=== PATIENT | male | born 1955 | race Caucasian/White ===

== ENCOUNTER 2017-08-19 19:04 | Inpatient (IN) | payer MEDICARE, OTHER ==
[2017-08-19 20:01] LABS: Bilirubin Negative (Negative); Blood, Urine Trace (Negative); Clarity CLEAR (Clear); Glucose, Urine (Dipstick) Negative (Negative); Leukocyte Negative (Negative); Nitrite Negative (Negative); Protein, Urine (Dipstick) Negative (Neg-Trace); Specific Gravity, Urine 1.004 (1.002-1.036); Urobilinogen 0.2 mg/dL (0.2-1.0)
[2017-08-19 20:10] LABS: RBC/HPF None Seen HPF (0-3); WBC/HPF None Seen HPF (0-3)
[2017-08-19 20:11] LABS: Bacteria/HPF None Seen HPF (None Seen); Hyaline Casts/LPF NONE SEEN LPF (0-3 Hyaline); Squamous Epithelial None Seen HPF (0-3)
[2017-08-19 20:24] LABS: #Basophils 0.1 thou/uL (0.0-0.2); #Lymphocytes 1.5 thou/uL (1.20-3.40); #Neutrophils 8.1 thou/uL (1.40-6.50); %Basophils 0.5 % (0.0-1.0); %Eosinophils 0.3 % (0.0-10.0); %Lymphocytes 14.3 % (21.0-51.0); %Monocytes 9.3 % (0.0-10.0); %Neutrophils 75.7 % (42.0-75.0); Hemoglobin 17.9 g/dL (14.0-18.0); Mean Corpuscular HGB CONC 34.6 g/dL (32.0-36.0); Mean Corpuscular Hemoglobin 37.4 pg (27.0-31.0); Mean Platelet Volume 7.8 fL (7.4-10.4); Platelet Count 165 thou/uL (130-400); RBC Distribution Width 15.4 % (11.5-14.5); Red Blood Cell (RBC) Count 4.79 mill/uL (4.70-6.10); White Blood Cell (WBC) Count 10.6 thou/uL (4.8-10.8)
[2017-08-19 20:45] LABS: Troponin I Less than 0.010 ng/mL (< 0.028)
[2017-08-19] MEDS ORDERED: Multivitamins, Adult 10 ML, Thiamine HCl 100 MG, Folic Acid 1 MG in Dextrose 5 %-0.45 %... IV ONE (20:45)
[2017-08-19 20:50] LABS: CKMB 9.4 ng/mL (0-6.6)
[2017-08-19 20:55] LABS: PTT 26.7 SEC (22.9-36.1); Prothrombin Time 12.8 SEC (12.0-14.7)
[2017-08-19 21:01] LABS: ALT (SGPT) 21 U/L (8-55); AST (SGOT) 69 U/L (5-34); Alkaline Phosphatase 78 U/L (40-150); Anion Gap 18 mmol/L (10-20); BUN (Urea Nitrogen) 6 mg/dL (8.4-25.7); Bilirubin, Total 0.9 mg/dL (0.2-1.2); CK (CPK) 1328 U/L (30-200); Calc. Creatinine Clearance 0 mL/min (70-130); Calcium 9.6 mg/dL (7.8-10.44); Carbon Dioxide 22 mmol/L (23-31); Chloride 96 mmol/L (98-107); Estimated GFR-MDRD Greater than 90; Globulin 4.2 g/dL (2.4-3.5); Glucose 103 mg/dL (80-115); Potassium 4.7 mmol/L (3.5-5.1); Protein, Total 8.2 g/dL (5.8-8.1); Sodium 131 mmol/L (136-145)
[2017-08-19] MEDS ORDERED: chlordiazePOXIDE HCl 25 MG CAP ONE (22:05)
--- NOTE | 2017-08-19 22:14 | CT ---
CT BRAIN NONCONTRAST: HISTORY: A 62-year-old female, status post acute head trauma from fall. FINDINGS: There is no midline shift or any other mass effect. There is no evidence of acute intracranial hemor rhage, large cortical infarct, obstructive hydrocephalus, or extraaxial fluid collection. The calvar ium is intact. IMPRESSION: No acute intracranial findings. jn [] POS: [facility]
--- NOTE | 2017-08-19 22:18 | CT ---
CT CERVICAL SPINE NONCONTRAST: DATE: 08/19/2017 TIME: 9:28 p.m. HISTORY: A 62-year-old male status post acute cervical trauma from a fall. FINDINGS: There are no jumped or perched facets. There is no evidence of acute fracture. The vertebral body h eights are maintained. There is no prevertebral soft tissue swelling. There are degenerative disc c hanges and facet osteoarthrosis. There is a left pleural effusion that reaches the left apex IMPRESSION: 1) Cervical spondylosis. 2) No evidence of acute fracture or acute traumatic subluxation. 3) Left pleural effusion that reaches the apex, incompletely visualized. CODE CR jn [] POS: [facility]
--- NOTE | 2017-08-19 22:20 | RAD ---
RADIOGRAPH RIGHT KNEE FOUR VIEWS: HISTORY: A 62-year-old male with traumatic right knee pain due to multiple falls. FINDINGS: No fracture or dislocation. Joint spaces are maintained. Small marginal osteophytes at the patellof emoral and the medial compartments. Chondrocalcinosis in the medial and lateral compartments. No la rge joint effusion. IMPRESSION: 1. No acute fracture. 2. Mild osteoarthrosis. 3. Chondrocalcinosis, consistent with calcium pyrophosphate deposition disease. POS: [facility]
--- NOTE | 2017-08-19 22:23 | RAD ---
FRONTAL RADIOGRAPH PELVIS: 08/19/2017 HISTORY: Fall. Pain. FINDINGS: The patient is rotated to the right, which limits a detailed assessment of the osseous structures. T he femoral heads project normally over their respective acetabulum, with no displaced fracture seen. There is no widening sacroiliac joints or the pubic symphysis. IMPRESSION: Limited study secondary to rotation the right. No displaced fracture or dislocation seen. POS: [facility]
--- NOTE | 2017-08-19 22:31 | RAD ---
LEFT KNEE FOUR VIEWS: 08/19/2017 HISTORY: Fall. Pain. FINDINGS: There is a total knee arthroplasty present. There is no evidence for hardware failure. No displaced fracture or dislocation. No significant knee joint effusion. IMPRESSION: No displaced fracture or dislocation is noted. POS: [facility]
--- NOTE | 2017-08-19 22:40 | RAD ---
RADIOGRAPH CHEST 1 VIEW: Date: 08/19/2017 Time: 8:58 p.m. HISTORY: A 62-year-old male with acute chest pain, status post fall. Dr. Tafoya discussed the pneumothorax, by cherry aguilar, with Dr. Church, at 9:44 pm 08/19/2017. COMPARISON: 11/07/2006 FINDINGS: There is a moderate to large left pneumothorax, which was not present on the 2007 radiograph. Again noted is partial visualization of a prosthetic metallic right humeral head. There is partial collaps e of the left lung. The right lung is relatively clear. No cardiomegaly. Ectasia and tortuosity of the thoracic aorta without other widening of the mediastinum. There is silhouetting of the left hem idiaphragm, presumably due to left basilar atelectasis, although a small or moderate sized left pleur al effusion is difficult to exclude. No right-sided pneumothorax identified. IMPRESSION: 1. Moderate to large sized left pneumothorax, of indeterminate age. 2. Associated atelectasis of the left lung, especially at the left base. 3. Uncertain whether or not there is a left pleural effusion. CODE CR JN [] POS: [facility]
[2017-08-19] MEDS ORDERED: Ondansetron ODT 4 MG TAB ONE (22:59)
--- NOTE | 2017-08-19 23:40 | CT ---
CT THORAX NONCONTRAST: DATE: 08/19/2017 TIME: 10:48 p.m. HISTORY: A 62-year-old male with left pneumothorax. COMPARISON: No prior chest CTs. FINDINGS: There is a left sided loculated pneumothorax that occupies the lateral aspect of the left hemithoraci c cavity, extending from the upper to the lower levels. It occupies approximately 30% volume of the left hemithorax. It has thick lovell, circumferentially. There is associated stranding, consistent w ith scarring, of the pulmonary parenchyma, abutting this pneumothorax. There is mass-like thickening of pulmonary scar tissue at the posterior-inferior aspect of the left lung, contiguous with this pne umothorax. There is associated architectural distortion of the left lung, throughout the upper, mid, and lower lung zones. There is no shift of midline of the trachea. The right lung is essentially c lear. No right-sided pneumothorax or right pleural effusion. No thoracic aortic aneurysm or dissect ion. No mediastinal lymphadenopathy, cardiomegaly, or pericardial effusion. A metallic prosthesis r eplacing the right humeral head, with a long stem that reaches the humeral mid-diaphysis. No grossly displaced acute rib fracture identified. IMPRESSION: Moderate sized loculated, chronic-appearing left pneumothorax with adjacent left pleural thickening, and associated chronic pulmonary scarring and architectural distortion of the left lung. ZORAIDA Tamez POS: [facility]
[2017-08-20 00:07] LABS: Lactic Acid 1.6 mmol/L (0.5-2.2)
[2017-08-20 01:06] LABS: Acetaminophen Less than 6.0 mcg/mL (10.0-30.0); Alcohol Less than 10 mg/dL (Less than 10); Salicylate Less than 8.0 mg/dL (15.0-30.0)
--- NOTE | 2017-08-20 02:06 | PDOC.FPRHP ---
- History of Present Illness Chief Complaint: fall, couldn't walk, trouble walking History of Present Illness: 62 yo M w/o known PMH hasn't been to the physician in a very long time presents to ED after being brought in by friends. Pt reports he fell and was unable to walk and get to help today, but was eventually able to get to a phone and call friends. Pt reports he has had progressive numbness of his lower extremities and increasing fall frequency over the last several months. He has not sought the care of a physician in this time. He also reports persistent and worsening joint pain. Denies recent illnesses, fever, chills, cp, sob, NVDC. He is a current everyday smokeless tobacco user, he smokes marijuana daily and has approx 6-8 12 oz beers a day. Denied bowel or bladder incontinence. Pt reports he was down for approx 3 hours, was later able to make it to the bathroom and then fell again and was unable to get back up. He reports no recollection of falling wpisodes and doesnt really "come to" until just before hitting the ground. ED Course: Banana bag, librium and zofran - Allergies/Adverse Reactions Allergies Allergy/AdvReac Type Severity Reaction Status Date / Time Sulfa (Sulfonamide Allergy Verified 08/20/17 04:47 Antibiotics) - Home Medications Medication Instructions Recorded Confirmed Type No Known [No Known] 08/20/17 08/20/17 History - History PMHx: No Known PSHx: Numerous joint surgeries including, rt knee meniscus, left acl, left total knee, r shoulder replacement, FHx: NA Social: Current everyday smokeless tobacco user 1/2 can a day for 25 years, 6-8 12 oz beers per day, current everyday marijuana user - Review of Systems General: denies: fever/chills, weight/appetite/sleep changes, night sweats Eyes: denies: eye pain, vision changes ENT: denies: nasal congestion, rhinorrhea Respiratory: denies: cough, congestion, shortness of breath, exercise intolerance Cardiovascular: denies: chest pain, palpitation, edema, paroxysmal nocturnal dyspnea Gastrointestinal: denies: nausea, vomiting, diarrhea, constipation, abdominal pain, GI bleeding Genitourinary: denies: incontinence, dysuria Skin: reports: other (numerous abrasions). denies: rashes, lesions Musculoskeletal: reports: pain, tenderness, swelling, arthritis/arthralgias Neurological: reports: numbness, syncope, weakness - Vital signs BP: 156/101 HR: 87 RR: 19 Tmax: 98.2 Pox: 99% on 4LNC Wt: 63.5Kg - Physical Exam Constitutional: NAD, awake, alert and oriented HEENT: normocephalic and atraumatic, PERRLA, EOMI, grossly normal vision, grossly normal hearing, other (poor dentition, polyp on uvula, rt parotid swelling) Neck: supple, FROM, trachea midline, no LAD, no JVD, no thyromegaly Chest: no-tender to palpation Heart: RRR, normal S1/S2, no murmurs/rubs/gallops, pulses present, no edema Lungs: CTAB, no respiratory distress, good air movement, no rales/rhonchi, no wheezing, no retractions, other (absent breath sounds SHAHLA) Abdomen: soft, non-tender, bowel sounds present, no masses/distention Musculoskeletal: normal structure, normal tone Neurological: no focal deficit, CN II-XII intact, other (diminished sensation b/ l LE, diminished sensation Lt hand compared to right) Skin: other (abrasions scattered over b/l LE and thorax) Heme/Lymphatic: no petechia, no LAD, other (abrasions and superficial lacerations b/l LE and scattered around thorax) Psychiatric: normal mood and affect FMR H&P: Results - Labs Result Diagrams: 08/20/17 04:51 08/20/17 04:51 Lab results: WBC 10.6 thou/uL (4.8-10.8) 08/19/17 20:09 Hgb 17.9 g/dL (14.0-18.0) 08/19/17 20:09 Hct 51.8 % (42.0-52.0) 08/19/17 20:09 MCV 108.0 fL (78.0-98.0) H 08/19/17 20:09 Plt Count 165 thou/uL (130-400) 08/19/17 20:09 Neutrophils % 75.7 % (42.0-75.0) H 08/19/17 20:09 Sodium 131 mmol/L (136-145) L 08/19/17 20:09 Potassium 4.7 mmol/L (3.5-5.1) 08/19/17 20:09 Chloride 96 mmol/L (98-107) L 08/19/17 20:09 Carbon Dioxide 22 mmol/L (23-31) L 08/19/17 20:09 BUN 6 mg/dL (8.4-25.7) L 08/19/17 20:09 Creatinine 0.70 mg/dL (0.6-1.3) 08/19/17 20:09 Glucose 103 mg/dL (80-115) 08/19/17 20:09 Lactic Acid 1.6 mmol/L (0.5-2.2) 08/19/17 23:42 Calcium 9.6 mg/dL (7.8-10.44) 08/19/17 20:09 Total Bilirubin 0.9 mg/dL (0.2-1.2) 08/19/17 20:09 AST 69 U/L (5-34) H 08/19/17 20:09 ALT 21 U/L (8-55) 08/19/17 20:09 Alkaline Phosphatase 78 U/L (40-150) 08/19/17 20:09 Creatine Kinase 1328 U/L (30-200) H 08/19/17 20:09 CK-MB (CK-2) 9.4 ng/mL (0-6.6) H* 08/19/17 20:09 Serum Total Protein 8.2 g/dL (5.8-8.1) H 08/19/17 20:09 Albumin 4.0 g/dL (3.4-4.8) 08/19/17 20:09 Urine Ketones Trace mg/dL (Negative) H 08/19/17 19:43 Urine Blood Trace (Negative) H 08/19/17 19:43 Urine Nitrite Negative (Negative) 08/19/17 19:43 Ur Leukocyte Esterase Negative (Negative) 08/19/17 19:43 Urine RBC None Seen HPF (0-3) 08/19/17 19:43 Urine WBC None Seen HPF (0-3) 08/19/17 19:43 Ur Squamous Epith Cells None Seen HPF (0-3) 08/19/17 19:43 Urine Bacteria None Seen HPF (None Seen) 08/19/17 19:43 FMR H&P: A/P - Problem List (1) TIA (transient ischemic attack) Current Visit: Yes Status: Suspected (2) Fall Current Visit: Yes Status: Acute Code(s): W19.XXXA - UNSPECIFIED FALL, INITIAL ENCOUNTER (3) Alcohol abuse Current Visit: Yes Status: Chronic Code(s): F10.10 - ALCOHOL ABUSE, UNCOMPLICATED (4) Macrocytosis Current Visit: Yes Status: Acute Code(s): D75.89 - OTHER SPECIFIED DISEASES OF BLOOD AND BLOOD-FORMING ORGANS (5) Neuropathy Current Visit: Yes Status: Suspected Code(s): G62.9 - POLYNEUROPATHY, UNSPECIFIED (6) Alcohol dependence Current Visit: Yes Status: Chronic Code(s): F10.20 - ALCOHOL DEPENDENCE, UNCOMPLICATED (7) Marijuana abuse Current Visit: Yes Status: Chronic Code(s): F12.10 - CANNABIS ABUSE, UNCOMPLICATED (8) Dehydration Current Visit: Yes Status: Acute Code(s): E86.0 - DEHYDRATION - Plan 1a. TIA vs CVA-admit, stroke, CT brain neg, obtain CTA head and neck and MRI, echo also ordered. This could be related to vitamin deficiency, obtain B12 and RBC folate. Risk stratify with FLP, Mg, Phos, TSH, A1c 1b. Pneumothorax vs bleb-Dr. Ward consulted from ED and reviewed imaging, will decide on chest tube in AM, non-acute pneumo, continue O2 prn was on 4L downstairs satting 99% 1c. Fall-imaging obtained unremarkable, c/o ankle pain, add film order for that 1d. Dehydration-CK elevated, will hydrate with low rate to avoid rapid over correction of hyponatremia 1e. Beer drinkers potomania-correct slowly, appears volume down 2. Alcohol dependence-states he is not interested in quitting, drank 1 beer before coming in, will order beer and ASE protocol, avoid benzos as he is not wanting to quit 3. Cannabis abuse-advised to quit Full code Disposition/LOS: fair, >/= 2 days FMR H&P: Upper Level - Pertinent history Pt is a 62 yo M w/PMH of cannabis abuse and alcohol dependence who presents to the ED w/3 hr hx of falling and no being able to get up, trouble walking. He reports that he fell around 2300 in his living room, was not able to get up and walk, called his friends to come get him and take him to the hospital, got up and crawled in the bathroom, then after that was not able to walk and crawled to his room. He states that this was the worst spell, but that he has been falling for about 5 mo, his legs have scrapes and bruises all over them. Reports that he has not seen a doctor since his knee surgery, he drinks 6-8 beers daily, smokes cannabis daily since age 19, does not use tobacco. General: appears disheveled, thin, malodorous HEENT: orpharynx mildly red, dry mm, Card: RRR Lungs: no breath sounds SHAHLA Abdomen: soft, non TTP, normoactive bs Extremities: covered in excoriations Neuro: CN II-XII intact, 5/5 UE LE strength, 4/5 lead generation specialist strength, reports no sensation in feet, and more proximally A/P: 1a. TIA vs CVA-admit, stroke, CT brain neg, obtain CTA head and neck and MRI, echo also ordered. This could be related to vitamin deficiency, obtain B12 and RBC folate. Risk stratify with FLP, Mg, Phos, TSH, A1c 1b. Pneumothorax vs bleb-Dr. Ward consulted from ED and reviewed imaging, will decide on chest tube in AM, non-acute pneumo, continue O2 prn was on 4L downstairs satting 99% 1c. Fall-imaging obtained unremarkable, c/o ankle pain, add film order for that 1d. Dehydration-CK elevated, will hydrate with low rate to avoid rapid over correction of hyponatremia 1e. Beer drinkers potomania-correct slowly, appears volume down 2. Alcohol dependence-states he is not interested in quitting, drank 1 beer before coming in, will order beer and ASE protocol, avoid benzos as he is not wanting to quit 3. Cannabis abuse-advised to quit Full code - Plan Date/Time: 08/20/17 7103 I, Holley Chicas, have evaluated this patient and agree with findings/plan as outlined by media intern resident, Dr. Medrano. Pertinent changes/additions are listed here. Attending Addendum - Attending Addendum Date/Time: 08/20/17 4776 I personally evaluated the patient and discussed the management with Dr. Medrano/ Jaime I agree with the History, Examination, Assessment and Plan documented above with any addition or exceptions noted below. Patient with progressive symptoms of peripheral neuropathy last few months with significant history for alcoholism. Work up in progress for central etiologies patient with recent falls currently not endorsing any current desire for alcohol /substance abuse cessation. Patient MCV elevated most likely nutrition related, B12 pending. Expectant management withdrawal protocol.
[2017-08-20] MEDS ORDERED: Sodium Chloride 0.45% 1,000 ML IV SCH (03:15)
[2017-08-20] MEDS ORDERED: Ondansetron ODT 4 MG TAB PO PRN (04:13)
[2017-08-20] MEDS ORDERED: Ondansetron HCl/PF 4 MG/2 ML Vial IVP PRN (04:13)
[2017-08-20] MEDS ORDERED: hydrALAZINE 20 MG/ML VIAL SLOW IVP PRN (04:13)
[2017-08-20 04:38] VITALS: BMI 20.7
[2017-08-20 05:38] LABS: Magnesium 1.9 mg/dL (1.6-2.6); Phosphorus 2.6 mg/dL (2.3-4.7)
--- NOTE | 2017-08-20 06:23 | PDOC.FM ---
- Subjective Subjective: Miladis Mccabe seen at bedside this morning. He states that he still feels nauseous but he is otherwise fine, just wants to sleep. He denies any acute events since being admitted overnight. Has no other complaints. Denies fever, chills, chest pain, dyspnea, lightheadedness, dizziness, pre-syncope. - Objective MAR Reviewed: Yes Vital Signs & Weight: Vital Signs (12 hours) Temp Pulse Resp BP Pulse Ox 08/20/17 03:00 98.2 F 86 18 160/96 H 96 Weight Weight 67.676 kg I&O: 08/18/17 08/19/17 08/20/17 06:59 06:59 06:59 Intake Total 270 Balance 270 Result Diagrams: 08/20/17 04:51 08/20/17 04:51 <Tom Sandoval - Last Filed: 08/20/17 08:41> - Objective Vital Signs & Weight: Vital Signs (12 hours) Temp Pulse Resp BP Pulse Ox 08/20/17 08:00 98.4 F 86 18 143/82 H 96 08/20/17 03:00 98.2 F 86 18 160/96 H 96 Weight Admit Weight 67.676 kg Weight 67.676 kg I&O: 08/19/17 08/20/17 08/21/17 06:59 06:59 06:59 Intake Total 270 Balance 270 Result Diagrams: 08/20/17 04:51 08/20/17 04:51 <Tobias Amado - Last Filed: 08/20/17 11:26> Phys Exam - Physical Examination Constitutional: NAD HEENT: moist MMs, sclera anicteric Neck: no JVD, supple, full ROM Respiratory: no wheezing, no rales, no rhonchi, clear to auscultation bilateral Cardiovascular: RRR, no significant murmur Gastrointestinal: soft, non-tender, no distention Musculoskeletal: no edema, pulses present Neurological: non-focal, normal sensation, moves all 4 limbs Psychiatric: normal affect, A&O x 3 Skin: no rash, normal turgor <Tom Sandoval - Last Filed: 08/20/17 08:41> Dx/Plan (1) TIA (transient ischemic attack) Status: Suspected (2) Alcohol dependence Code(s): F10.20 - ALCOHOL DEPENDENCE, UNCOMPLICATED Status: Chronic (3) Marijuana abuse Code(s): F12.10 - CANNABIS ABUSE, UNCOMPLICATED Status: Chronic - Plan Plan: 1) TIA vs CVA vs Wernicke Encephalopathy or other vit def - CT brain neg, obtain CTA head and neck and MRI, echo also ordered. - This could be related to vitamin deficiency, obtain B12 and RBC folate - Check RPR, HIV, and Hepatitis Panel this morning - Continue IV thiamine for 3 days - Fall-imaging obtained unremarkable, c/o ankle pain, add film order for that - Dehydration-CK elevated, will hydrate with low rate to avoid rapid over correction of hyponatremia - Beer drinkers potomania-correct slowly, appears volume down 2. Alcohol dependence - states he is not interested in quitting, drank 1 beer before coming in - ASE protocol, avoid benzos as he is not wanting to quit 3. Cannabis abuse - advised to quit 4) Pneumothorax: - Pneumothorax vs bleb-Dr. Ward consulted from ED and reviewed imaging, will decide on chest tube in AM, non-acute pneumo, continue O2 prn was on 4L downstairs satting 99% <Tom Sandoval - Last Filed: 08/20/17 08:41> (1) TIA (transient ischemic attack) Status: Suspected (2) Fall Code(s): W19.XXXA - UNSPECIFIED FALL, INITIAL ENCOUNTER Status: Acute (3) Alcohol abuse Code(s): F10.10 - ALCOHOL ABUSE, UNCOMPLICATED Status: Chronic (4) Macrocytosis Code(s): D75.89 - OTHER SPECIFIED DISEASES OF BLOOD AND BLOOD-FORMING ORGANS Status: Acute (5) Neuropathy Code(s): G62.9 - POLYNEUROPATHY, UNSPECIFIED Status: Suspected (6) Alcohol dependence Code(s): F10.20 - ALCOHOL DEPENDENCE, UNCOMPLICATED Status: Chronic (7) Marijuana abuse Code(s): F12.10 - CANNABIS ABUSE, UNCOMPLICATED Status: Chronic (8) Dehydration Code(s): E86.0 - DEHYDRATION Status: Acute <Tobias Amado - Last Filed: 08/20/17 11:26> Attending Addendum - Attending Addendum Date/Time: 08/20/17 1126 I personally evaluated the patient and discussed the management with Dr. Sandoval I agree with the History, Examination, Assessment and Plan documented above with any addition or exceptions noted below. <Tobias Amado - Last Filed: 08/20/17 11:26>
[2017-08-20 06:28] LABS: Amphetamine Not Detected (NotDetected); Barbiturates Screen Not Detected (NotDetected); Benzodiazepine Screen Not Detected (NotDetected); Cocaine Metabolite Screen Not Detected (NotDetected); Medtox Control Line Valid? VALID (VALID); Medtox Reader # READER 4; Methadone Not Detected (NotDetected); Methamphetamine Not Detected (NotDetected); Opiate Screen Not Detected (NotDetected); Oxycodone Screen Not Detected (NotDetected); Phencyclidine (PCP) Not Detected (NotDetected); THC/Cannabinoid Screen Detected (NotDetected); Tricyclic Screen Not Detected (NotDetected)
[2017-08-20] MEDS: Acetaminophen 325 MG TAB PO PRN (06:56)
[2017-08-20] MEDS: Sodium Chloride 0.9% 1,000 ML IV SCH ×2 (06:56→16:30)
[2017-08-20 07:05] LABS: #Lymphocytes 1.1 thou/uL (1.20-3.40); #Neutrophils 7.8 thou/uL (1.40-6.50); %Basophils 0.5 % (0.0-1.0); %Eosinophils 0.4 % (0.0-10.0); %Lymphocytes 11.4 % (21.0-51.0); %Monocytes 9.6 % (0.0-10.0); %Neutrophils 78.1 % (42.0-75.0); Hemoglobin 16.5 g/dL (14.0-18.0); Mean Corpuscular HGB CONC 33.6 g/dL (32.0-36.0); Mean Corpuscular Hemoglobin 36.5 pg (27.0-31.0); Mean Platelet Volume 8.5 fL (7.4-10.4); Platelet Count 153 thou/uL (130-400); RBC Distribution Width 15.4 % (11.5-14.5); Red Blood Cell (RBC) Count 4.51 mill/uL (4.70-6.10); White Blood Cell (WBC) Count 9.9 thou/uL (4.8-10.8)
--- NOTE | 2017-08-20 07:11 | CON ---
DATE OF CONSULTATION: HISTORY OF PRESENT ILLNESS: Mr. Mccabe presented to the emergency department last night being estephania t in by friends. He evidently fell and was unable to walk. As part of his workup, he had a chest x- ray obtained. This showed air space on the left. The patient has a known history of COPD. He has h ad a chest x-ray and chest CT performed. This shows what appears to be either a large bleb or chroni c airspace with a walled off area around it. The patient has remained asymptomatic from a pulmonary standpoint. Repeat chest x-ray is due this morning. The patient has been maintained on nasal cannul a oxygen overnight with no symptoms whatsoever from a pulmonary standpoint. PAST MEDICAL HISTORY: None. PAST SURGICAL HISTORY: Bilateral total knee replacements, right shoulder replacement, right knee men iscus surgery. SOCIAL HISTORY: He smokes marijuana, cigarettes and uses smokeless tobacco. He drinks approximately a 12 pack of beer a day. REVIEW OF SYSTEMS: Negative except as above. PHYSICAL EXAMINATION: VITAL SIGNS: Temperature is 98.2, pulse is 86 and regular, blood pressure 160/96. LUNGS: Clear bilaterally. HEART: Rhythm is regular. ABDOMEN: Soft and nontender. ASSESSMENT AND PLAN: Mr. Mccabe is a 62-year-old gentleman who either has a pneumothorax or a large bleb that is walled off. He is asymptomatic. I am uncomfortable saying this is a pneumothorax and p utting a chest tube in it right now. I would like to see what his chest x-ray looks like this mornin g. If it is stable or improved I would say we should treat him conservatively and not drain this.
[2017-08-20 07:23] LABS: ALT (SGPT) 17 U/L (8-55); AST (SGOT) 42 U/L (5-34); Albumin 3.2 g/dL (3.4-4.8); Alkaline Phosphatase 61 U/L (40-150); Anion Gap 10 mmol/L (10-20); BUN (Urea Nitrogen) 5 mg/dL (8.4-25.7); Bilirubin, Total 1.1 mg/dL (0.2-1.2); Calc. Creatinine Clearance 113 mL/min (70-130); Calcium 8.5 mg/dL (7.8-10.44); Carbon Dioxide 28 mmol/L (23-31); Chloride 99 mmol/L (98-107); Estimated GFR-MDRD Greater than 90; Globulin 2.7 g/dL (2.4-3.5); Glucose 123 mg/dL (80-115); Potassium 3.5 mmol/L (3.5-5.1); Protein, Total 5.9 g/dL (5.8-8.1); Sodium 133 mmol/L (136-145)
[2017-08-20 08:14] LABS: HBCM Index 0.07 S/CO (0-0.79); HBSAg Index 0.21 S/CO (0-0.99); HIV (1/2) Antibody/Antigen Non-Reactive (NonReactive); HIV 1/2 INDEX 0.14 S/CO (<1.00); Hep A IgM AB Non-Reactive (NonReactive); Hep A IgM S/CO 0.09 S/CO (0-0.79); Hep B Surf Ag Non-Reactive S/CO (NonReactive); Hep C IgG Ab Non-Reactive (NonReactive); Hepatitis B Core IGM Abs Non-Reactive (NonReactive)
[2017-08-20] MEDS ORDERED: Budesonide 0.25 MG/2 ML NEB ONE (08:39)
--- NOTE | 2017-08-20 09:16 | RAD ---
THREE VIEWS RIGHT ANKLE: Date: 08-20-17 Comparison: None. History: Ankle pain, fall. FINDINGS: There is soft tissue swelling seen lateral to the lateral malleolus. There is no displaced fracture o r evidence of dislocation seen. There is soft tissue swelling seen anteriorly. Vascular calcification s are noted. IMPRESSION: Soft tissue swelling with no displaced fracture or dislocation seen. POS: [facility]
--- NOTE | 2017-08-20 09:24 | RAD ---
CHEST 1 VIEW: Date: 08/20/17 HISTORY: 62-year-old male with history of TIA. COMPARISON: 08/19/17. FINDINGS: Persistent but decreasing loculated pleural air along the left lateral chest with some associated ple ural thickening and pleural fluid, as well as underlying bullous emphysema changes and patchy parench ymal changes in the left lung with some left apical pleural thickening. The right lung is clear. IMPRESSION: Decrease in loculated pleural air in the left lateral chest with associated pleural thickening and pr obable small pleural effusion, as well as underlying bullous emphysema changes and scattered chronic left lung changes. Stable right chest. No significant new process. Atherosclerosis of aorta. POS: [facility]
[2017-08-20] MEDS: Famotidine 20 MG TAB PO SCH ×2 (09:50→21:25)
[2017-08-20] MEDS: Aspirin 81 mg Enteric Coated Tablet PO SCH (09:50)
[2017-08-20] MEDS: Enoxaparin Sodium 40 MG/0.4 ML SYRINGE SC SCH (09:51)
[2017-08-20] MEDS: Folic Acid/Vit B Comp W-C PO SCH (09:59)
--- NOTE | 2017-08-20 10:38 | CT ---
CT ANGIOGRAM OF THE HEAD CT ANGIOGRAM OF THE NECK: Date: 08/20/17 COMPARISON: None. HISTORY: Recent fall, syncope, TIA vs. CVA, and paresthesias. TECHNIQUE: Serial axial CT imaging is obtained at 5 mm intervals from the vertex through the skull base without contrast. Then, serial axial CT imaging obtained at 1.25 mm intervals from lung apices through vertex with IV contrast using a CT angiogram protocol. Coronal and sagittal 3D reformatted imaging obtained . FINDINGS: The noncontrast enhanced head CT demonstrates bilateral maxillary sinus mucosal thickening, right gre ater than left. There is no intracranial hemorrhage, midline shift, mass effect, or ventricular enlar gement. Punctate hypodensity in the right cerebellar hemisphere on image 8 suggests an area of age-indetermin ate, likely old, ischemia. The imaged right lung apex is unremarkable. Partially visualized left lung demonstrates a lateral loc ulated pneumothorax and coarse increased linear and lobulated soft tissue density within the lateral aspect of the left upper lobe, nonspecific. Please refer to CT examination of the chest performed for full evaluation. There is no hemodynamically significant stenosis at the origin of the innominate artery, left subclav nabila artery, or left common carotid artery. There is no hemodynamically significant stenosis involving the origin of the right subclavian artery or right common carotid artery. There is no hemodynamically significant stenosis at the origin of either vertebral artery. Bilateral vertebral arteries are patent. The right vertebral artery is dominant. On the basis of NASCET criteria, there is no hemodynamically significant stenosis involving either co mmon or internal carotid artery. The trachea, cricoid cartilage, thyroid cartilage, hyoid bone, level of the glottis, tonsillar pillar s, epiglottis, and preepiglottic fat appear unremarkable. The parotid and submandibular glands appear grossly unremarkable. No lymphadenopathy is noted within the chest. CT angiogram of the head demonstrates patency of the basilar artery and its branches with no hemodyna mically significant stenosis, vascular occlusion, or saccular aneurysm involving the posterior circul ation. The M1 segment and MCA bifurcation appears unremarkable bilaterally. Bilateral A1 segments, the anter ior communicating artery, and bilateral distal intracerebral artery branches are unremarkable. No saccular aneurysm, high grade stenosis, or vascular occlusion is seen involving the anterior circu lation. Review of the osseous structures demonstrates degenerative change of the atlantoaxial interspace. The re is mild anterolisthesis at C3-4. At C7-T1, there is anterolisthesis measuring 4.0 mm. There is mul tilevel disc space narrowing and degenerative end plate change with bilateral facet and uncovertebral osteophyte formation throughout the cervical spine. No worrisome lytic or blastic bone lesions are s een. IMPRESSION: 1. Arterial structures demonstrate no hemodynamically significant stenosis or evidence of occlusion. 2. Abnormal appearance of the imaged left hemithorax, which is better assessed on the 08/19/[address] POS: [facility]
[2017-08-20] MEDS ORDERED: Iopamidol 370 76% 100 ML VIAL ONE (13:02)
[2017-08-20] MEDS: BEER 1 CAN PO SCH ×2 (14:15→16:54)
[2017-08-20 17:15] LABS: Syphilis Antibody Nonreactive (Nonreactive); Syphilis Antibody Index 0.07 S/CO (<1.00 Non-Reactive)
[2017-08-21] MEDS: BEER 1 CAN PO PRN ×2 (00:14→20:40)
[2017-08-21] MEDS: Sodium Chloride 0.9% 1,000 ML IV SCH ×3 (04:40→20:35)
[2017-08-21 05:55] LABS: Hemoglobin A1c 4.6 % (4.0-6.0)
[2017-08-21 06:01] LABS: #Basophils 0.1 thou/uL (0.0-0.2); #Eosinphils 0.1 thou/uL (0.0-0.7); #Lymphocytes 1.6 thou/uL (1.20-3.40); #Monocytes 0.8 thou/uL (0.11-0.59); #Neutrophils 5.4 thou/uL (1.40-6.50); %Basophils 0.7 % (0.0-1.0); %Eosinophils 0.9 % (0.0-10.0); %Lymphocytes 19.7 % (21.0-51.0); %Monocytes 10.6 % (0.0-10.0); Hemoglobin 14.1 g/dL (14.0-18.0); Mean Corpuscular HGB CONC 32.2 g/dL (32.0-36.0); Mean Corpuscular Hemoglobin 35.3 pg (27.0-31.0); Mean Platelet Volume 8.6 fL (7.4-10.4); Platelet Count 145 thou/uL (130-400); RBC Distribution Width 14.8 % (11.5-14.5); White Blood Cell (WBC) Count 7.9 thou/uL (4.8-10.8)
[2017-08-21 06:02] LABS: ALT (SGPT) 15 U/L (8-55); AST (SGOT) 34 U/L (5-34); Albumin 3.1 g/dL (3.4-4.8); Alkaline Phosphatase 55 U/L (40-150); Anion Gap 9 mmol/L (10-20); BUN (Urea Nitrogen) 4 mg/dL (8.4-25.7); Bilirubin, Total 0.8 mg/dL (0.2-1.2); Calc. Creatinine Clearance 132 mL/min (70-130); Calcium 8.7 mg/dL (7.8-10.44); Carbon Dioxide 26 mmol/L (23-31); Cardiac Risk 1.7 (Less than 4.5); Chloride 101 mmol/L (98-107); Cholesterol 102 mg/dl (< 200 Desired); Estimated GFR-MDRD Greater than 90; Globulin 2.8 g/dL (2.4-3.5); Glucose 84 mg/dL (80-115); HDL Cholesterol 59 mg/dL (>60 Neg Risk); LDL Cholesterol, Calculated 32 mg/dL; Potassium 3.3 mmol/L (3.5-5.1); Protein, Total 5.9 g/dL (5.8-8.1); Sodium 133 mmol/L (136-145); Triglycerides 55 mg/dL (Less than 150)
--- NOTE | 2017-08-21 06:11 | PDOC.FM ---
- Subjective Subjective: Miladis Mccabe seen at bedside this morning. He is doing well and has no complaints. There was no acute events overnight. He states that he is still having the b/l UE and LE numbness and weakness. He denies any fever, chest pain , dyspnea, n/v. - Objective MAR Reviewed: Yes Vital Signs & Weight: Vital Signs (12 hours) Temp Pulse Resp BP BP Pulse Ox 08/21/17 04:05 136/72 08/21/17 04:00 99.0 F 86 18 136/72 98 08/21/17 00:00 98.1 F 75 18 148/91 H 148/91 H 98 08/20/17 20:21 98.1 F 75 18 96 08/20/17 20:00 98.7 F 90 18 159/102 H 159/102 H 96 Weight Admit Weight 67.676 kg Weight 69.581 kg I&O: 08/19/17 08/20/17 08/21/17 06:59 06:59 06:59 Intake Total 270 1195 Output Total 1850 Balance 270 -655 Result Diagrams: 08/21/17 04:48 08/21/17 04:48 <Tom Sandoval - Last Filed: 08/21/17 08:12> - Objective Vital Signs & Weight: Vital Signs (12 hours) Temp Pulse Resp BP BP Pulse Ox 08/21/17 07:57 98.5 F 77 18 127/74 98 08/21/17 04:05 136/72 08/21/17 04:00 99.0 F 86 18 136/72 98 08/21/17 00:00 98.1 F 75 18 148/91 H 148/91 H 98 Weight Admit Weight 67.676 kg Weight 69.581 kg I&O: 08/20/17 08/21/17 08/22/17 06:59 06:59 06:59 Intake Total 270 1195 Output Total 1850 Balance 270 -655 Result Diagrams: 08/21/17 04:48 08/21/17 04:48 <Tobias Amado - Last Filed: 08/21/17 11:17> Phys Exam - Physical Examination Constitutional: NAD HEENT: moist MMs, sclera anicteric Neck: no JVD, supple, full ROM Respiratory: no wheezing, no rales, no rhonchi, clear to auscultation bilateral Cardiovascular: RRR, no significant murmur Gastrointestinal: soft, non-tender, no distention Musculoskeletal: no edema, pulses present Neurological: normal sensation, moves all 4 limbs Psychiatric: normal affect, A&O x 3 <Tom Sandoval - Last Filed: 08/21/17 08:12> Dx/Plan (1) Polyneuropathy Code(s): G62.9 - POLYNEUROPATHY, UNSPECIFIED Status: Acute (2) TIA (transient ischemic attack) Status: Ruled-out (3) Alcohol dependence Code(s): F10.20 - ALCOHOL DEPENDENCE, UNCOMPLICATED Status: Chronic (4) Marijuana abuse Code(s): F12.10 - CANNABIS ABUSE, UNCOMPLICATED Status: Chronic - Plan Plan: 1) Polyneuropathy - CT brain neg, CTA head and neck unremarkable, echo shows EF of 50-55% - B12 is borderline low, checking methylmalonic acid, RBC folate pending. - RPR, HIV, and Hepatitis Panel all negative - Continue IV thiamine for 3 days - Fall-imaging obtained unremarkable, c/o ankle pain, add film order for that - Dehydration-CK elevated, will hydrate with low rate to avoid rapid over correction of hyponatremia - Beer drinkers potomania-correct slowly, appears volume down - Supplementing both thiamine, B12, and Folate at this time 2) Hyponatremia - Likely 2/2 beer drinkers potomania - IVFs, slow correction - Na is now up to 133 this morning 3) Alcohol dependence - states he is not interested in quitting, drank 1 beer before coming in - ASE protocol, avoid benzos as he is not wanting to quit - Beer ordered with meals 4) Cannabis abuse - advised to quit 4) Pneumothorax: - Pneumothorax vs bleb-Dr. Ward consulted from ED and reviewed imaging, decided against chest tube as this appears chronic <Tom Sandoval - Last Filed: 08/21/17 08:12> (1) TIA (transient ischemic attack) Status: Ruled-out (2) Fall Code(s): W19.XXXA - UNSPECIFIED FALL, INITIAL ENCOUNTER Status: Acute (3) Alcohol abuse Code(s): F10.10 - ALCOHOL ABUSE, UNCOMPLICATED Status: Chronic (4) Macrocytosis Code(s): D75.89 - OTHER SPECIFIED DISEASES OF BLOOD AND BLOOD-FORMING ORGANS Status: Acute (5) Neuropathy Code(s): G62.9 - POLYNEUROPATHY, UNSPECIFIED Status: Suspected (6) Alcohol dependence Code(s): F10.20 - ALCOHOL DEPENDENCE, UNCOMPLICATED Status: Chronic (7) Marijuana abuse Code(s): F12.10 - CANNABIS ABUSE, UNCOMPLICATED Status: Chronic (8) Dehydration Code(s): E86.0 - DEHYDRATION Status: Acute <Tobias Amado - Last Filed: 08/21/17 11:17> Attending Addendum - Attending Addendum Date/Time: 08/21/17 1111 I personally evaluated the patient and discussed the management with Dr. Sandoval I agree with the History, Examination, Assessment and Plan documented above with any addition or exceptions noted below. patients sodium correcting profound stocking glove neuropathy with diminished reflexes noted. Proprioception diminished to LE concern to fall risk start Pt for reconditioning hopefully B12 vitamin supplementation will improves symptoms. Alcohol abuse likely large contributing factor as well to neuropathy. Pneumothorax is stable longstanding. <Tobias Amado - Last Filed: 08/21/17 11:17>
[2017-08-21] MEDS: BEER 1 CAN PO SCH ×4 (09:05→21:20)
[2017-08-21] MEDS: Folic Acid/Vit B Comp W-C PO SCH (09:08)
[2017-08-21] MEDS: Aspirin 81 mg Enteric Coated Tablet PO SCH (09:08)
[2017-08-21] MEDS: Enoxaparin Sodium 40 MG/0.4 ML SYRINGE SC SCH (09:08)
[2017-08-21] MEDS: Famotidine 20 MG TAB PO SCH ×2 (09:08→20:33)
[2017-08-21] MEDS ORDERED: Cyanocobalamin (Vitamin B-12) 1,000 MCG TAB PO SCH ×2 (11:30→11:45)
[2017-08-21 14:27] LABS: Hematocrit 43.6 % (37.5-51.0); RBC Folate Test Component 913 ng/mL (>498)
--- NOTE | 2017-08-21 14:56 | PQF ---
CLINICAL DOCUMENTATION IMPROVEMENT CLARIFICATION FORM: ICD-10 Updated PLEASE DO AN ADDENDUM TO THE PROGRESS NOTE WITH ANY DOCUMENTATION UPDATES OR ADDITIONS AND CARRY THROUGH TO DC SUMMARY. THANK YOU. DATE: 08/21/17 ATTN: Dr. Sandoval/ Attending Dr. Amado Please exercise your independent, professional judgment in responding to the clarification form. Clinical indicators are provided on the bottom of this form for your review Please check appropriate box(s): I (concur) with the Wound Care findings as stated below. [ x ] Pressure Ulcer: (Stage I: Erythema; Stage II: Partial thickness; Stage III : Full thickness; Stage IV: Necrosis to muscle/bone) [ x ] Location: __left gluteal fold Stage (I to IV ): ___II____ (Left__x___ Right N/a____) [ x ] Location: ___L buttock/coccyx Stage (I to IV) : __II (Left__x___ Right N/A____) [ x ] Location: right foot Stage (I to IV): ___ II____ (Left Right_x___ N/A____) [ ] Location: Stage (I to IV): (Left__ ___ Right____ N/A____) [ ] Location: Stage (I to IV): (Left__ ___ Right N/A____) [ ] Location: Stage (I to IV): (Left__ ___ Right N/A____) [ ] Location: Stage (I to IV): (Left__ ___ Right N/A____) [ ] Location: Stage (I to IV): (Left__ ___ Right N/A____) [ ] No pressure ulcer diagnosis [ ] Deep tissue injury [ ] Other diagnosis [ ] Unable to determine In addition, please specify: Present on Admission (POA): [ x ] Yes [ ] No [ ] Unable to determine For continuity of documentation, please document condition throughout progress notes and discharge summary. Thank You. CLINICAL INDICATORS - SIGNS / SYMPTOMS / LABS WOUND CARE ASSESSMENT 08/20: RIGHT FOOT, LATERAL ASPECT PRESSURE ULCER. STAGE II R ANKLE LATERAL ASPECT PRESSURE ULCER. UNSTAGABLE R LEG, SUPERIOR LATERAL ASPECT PRESSURE ULCER. UNSTAGABLE R KNEE LATERAL ASPECT PRESSURE ULCER. UNSTAGABLE R ELBOW PRESSURE ULCER. UNSTAGABLE LEFT GLUTEAL FOLD PRESSURE ULCER. STAGE II L BUTTOCK/COCCYX PRESSURE ULCER. STAGE II RISKS: H&P 08/20: PRESENTS TO ED W/ 3 HR HX OF FALLING & NO BEING ABLE TO GET UP, TROUBLE WALKING. DEHYDRATION - CK ELEVATED. ALCOHOL DEPENDENCE. PROGRESSIVE SYMPTOMS OF PERIPHERAL NEUROPATHY LAST FEW MONTHS. TREATMENT: ORDER 08/20: WOUNDCARE EVAL/TREAT FOR WOUNDS UNSTAGABLE/NECROTIC ULCERS BLE & SACRUM (This form is maintained as a part of the permanent medical record) 2014 [employer]. All Rights Reserved Magalie Albrecht RN, BSN [email or web address] Office: [phone] [facility]ITAL[facility]
[2017-08-21] MEDS: Acetaminophen 325 MG TAB PO PRN (17:35)
[2017-08-21] MEDS ORDERED: BEER 1 CAN PO SCH (23:30)
[2017-08-22] MEDS: Sodium Chloride 0.9% 1,000 ML IV SCH ×2 (05:15→17:49)
[2017-08-22] MEDS: Acetaminophen 325 MG TAB PO PRN (05:18)
[2017-08-22 05:29] LABS: #Basophils 0.1 thou/uL (0.0-0.2); #Eosinphils 0.1 thou/uL (0.0-0.7); #Lymphocytes 1.5 thou/uL (1.20-3.40); #Monocytes 0.8 thou/uL (0.11-0.59); #Neutrophils 4.7 thou/uL (1.40-6.50); %Basophils 0.7 % (0.0-1.0); %Eosinophils 1.9 % (0.0-10.0); %Lymphocytes 21.2 % (21.0-51.0); %Monocytes 10.7 % (0.0-10.0); %Neutrophils 65.4 % (42.0-75.0); Hemoglobin 14.5 g/dL (14.0-18.0); Mean Corpuscular HGB CONC 33.8 g/dL (32.0-36.0); Mean Corpuscular Hemoglobin 36.6 pg (27.0-31.0); Mean Platelet Volume 8.1 fL (7.4-10.4); Platelet Count 172 thou/uL (130-400); RBC Distribution Width 14.6 % (11.5-14.5); Red Blood Cell (RBC) Count 3.97 mill/uL (4.70-6.10); White Blood Cell (WBC) Count 7.2 thou/uL (4.8-10.8)
[2017-08-22 05:42] LABS: ALT (SGPT) 16 U/L (8-55); AST (SGOT) 34 U/L (5-34); Albumin 3.2 g/dL (3.4-4.8); Alkaline Phosphatase 59 U/L (40-150); Anion Gap 9 mmol/L (10-20); BUN (Urea Nitrogen) 5 mg/dL (8.4-25.7); Bilirubin, Total 0.5 mg/dL (0.2-1.2); Calc. Creatinine Clearance 130 mL/min (70-130); Calcium 8.4 mg/dL (7.8-10.44); Carbon Dioxide 26 mmol/L (23-31); Chloride 102 mmol/L (98-107); Estimated GFR-MDRD Greater than 90; Glucose 88 mg/dL (80-115); Potassium 3.4 mmol/L (3.5-5.1); Protein, Total 6.2 g/dL (5.8-8.1); Sodium 134 mmol/L (136-145)
--- NOTE | 2017-08-22 06:23 | PDOC.FM ---
- Subjective Subjective: Miladis Mccabe seen at bedside this morning. There were no acute events overnight. He complains over tooth pain while eating this morning because he has a loose tooth. He also complains of his joints hurting. Otherwise he has no complaints. Denies any fever, chills, chest pain, dyspnea. - Objective MAR Reviewed: Yes Vital Signs & Weight: Vital Signs (12 hours) Temp Pulse Resp BP Pulse Ox 08/22/17 04:46 98.2 F 71 18 141/79 H 96 08/21/17 23:57 98 F 85 20 176/93 H 99 08/21/17 20:46 98.3 F 106 H 20 153/98 H 96 08/21/17 20:15 98 F 85 20 96 Weight Admit Weight 67.676 kg Weight 69.4 kg I&O: 08/20/17 08/21/17 08/22/17 06:59 06:59 06:59 Intake Total 270 1195 Output Total 1850 Balance 270 -655 Result Diagrams: 08/22/17 04:32 08/22/17 04:32 <Tom Sandoval - Last Filed: 08/22/17 08:44> - Objective Vital Signs & Weight: Vital Signs (12 hours) Temp Pulse Resp BP Pulse Ox 08/22/17 08:00 97.9 F 72 20 124/75 93 L 08/22/17 04:46 98.2 F 71 18 141/79 H 96 08/21/17 23:57 98 F 85 20 176/93 H 99 Weight Admit Weight 67.676 kg Weight 69.4 kg I&O: 08/21/17 08/22/17 08/23/17 06:59 06:59 06:59 Intake Total 1195 1687 Output Total 1850 425 Balance -655 1262 Result Diagrams: 08/22/17 04:32 08/22/17 04:32 <Tobias Amado - Last Filed: 08/22/17 11:53> Phys Exam - Physical Examination Constitutional: NAD HEENT: moist MMs, sclera anicteric poor dentition, loose right molar, no edema, exudades, erythema Neck: supple, full ROM Respiratory: no wheezing, no rales, no rhonchi, clear to auscultation bilateral Cardiovascular: RRR, no significant murmur Gastrointestinal: soft, non-tender, no distention Musculoskeletal: no edema, pulses present Neurological: non-focal decreased sensation in UE and LE B/l Psychiatric: normal affect, A&O x 3 Deviation from normal: several scratching and healing wounds on b/l legs <Tom Sandoval - Last Filed: 08/22/17 08:44> Dx/Plan (1) Polyneuropathy Code(s): G62.9 - POLYNEUROPATHY, UNSPECIFIED Status: Acute (2) TIA (transient ischemic attack) Status: Ruled-out (3) Alcohol dependence Code(s): F10.20 - ALCOHOL DEPENDENCE, UNCOMPLICATED Status: Chronic (4) Marijuana abuse Code(s): F12.10 - CANNABIS ABUSE, UNCOMPLICATED Status: Chronic - Plan Plan: 1) Polyneuropathy - CT brain neg, CTA head and neck unremarkable, echo shows EF of 50-55% - B12 is borderline low, checking methylmalonic acid, RBC folate pending. - RPR, HIV, and Hepatitis Panel all negative - Continue IV thiamine for 3 days - Fall-imaging obtained unremarkable, c/o ankle pain, add film order for that - Beer drinkers potomania-correct slowly, appears volume down - Supplementing both thiamine, B12, and Folate at this time - Likely B12 deficiency causing polyneuropathy - Likely d/c today, possibly placement in SNF or swing bed - CM consulted, appreciate recs 2) Hyponatremia - Likely 2/2 beer drinkers potomania - IVFs, slow correction - Na is now up to 134 this morning 3) Alcohol dependence - states he is not interested in quitting, drank 1 beer before coming in - ASE protocol, avoid benzos as he is not wanting to quit - Beer ordered with meals 4) Cannabis abuse - advised to quit 4) Pneumothorax: - Pneumothorax vs bleb-Dr. Ward consulted from ED and reviewed imaging, decided against chest tube as this appears chronic <Tom Sandoval - Last Filed: 08/22/17 08:44> (1) TIA (transient ischemic attack) Status: Ruled-out (2) Fall Code(s): W19.XXXA - UNSPECIFIED FALL, INITIAL ENCOUNTER Status: Acute (3) Alcohol abuse Code(s): F10.10 - ALCOHOL ABUSE, UNCOMPLICATED Status: Chronic (4) Macrocytosis Code(s): D75.89 - OTHER SPECIFIED DISEASES OF BLOOD AND BLOOD-FORMING ORGANS Status: Acute (5) Neuropathy Code(s): G62.9 - POLYNEUROPATHY, UNSPECIFIED Status: Suspected (6) Alcohol dependence Code(s): F10.20 - ALCOHOL DEPENDENCE, UNCOMPLICATED Status: Chronic (7) Marijuana abuse Code(s): F12.10 - CANNABIS ABUSE, UNCOMPLICATED Status: Chronic (8) Dehydration Code(s): E86.0 - DEHYDRATION Status: Acute <Tobias Amado - Last Filed: 08/22/17 11:53> Attending Addendum - Attending Addendum Date/Time: 08/22/17 1150 I personally evaluated the patient and discussed the management with Dr. Sandoval I agree with the History, Examination, Assessment and Plan documented above with any addition or exceptions noted below.Patient stable for dismissal to rehab placement. Moderate peripheral neuropathy RX gabapentin and Physical Therapy , B12 supplementation and encourage alcohol cessation patient states he will cut down on drinking. Patient counseled poor prognosis with continued alcohol usuage but declining intervention at this time. <Tobias Amado - Last Filed: 08/22/17 11:53>
[2017-08-22] MEDS ORDERED: Cyanocobalamin (Vitamin B-12) 1,000 MCG TAB PO SCH (09:00)
[2017-08-22] MEDS ORDERED: Gabapentin 300 MG CAP PO SCH (09:00)
[2017-08-22] MEDS: Folic Acid/Vit B Comp W-C PO SCH (09:22)
[2017-08-22] MEDS: Aspirin 81 mg Enteric Coated Tablet PO SCH (09:22)
[2017-08-22] MEDS: Enoxaparin Sodium 40 MG/0.4 ML SYRINGE SC SCH (09:22)
[2017-08-22] MEDS: Famotidine 20 MG TAB PO SCH (09:22)
[2017-08-22] MEDS: Gabapentin 100 MG CAP PO SCH ×2 (09:22→14:16)
[2017-08-22] MEDS: BEER 1 CAN PO SCH ×3 (09:42→17:49)
[2017-08-22] MEDS ORDERED: Potassium Chloride 20 MEQ TAB PO SCH (12:00)
--- NOTE | 2017-08-22 14:12 | DIS-2 ---
DATE OF DISCHARGE: 08/22/2017 RESIDENT: Tom Sandoval M.D. ADMITTING ATTENDING: Dr. Tobias Amado DISCHARGE ATTENDING: Dr. Tobias Amado. CONSULTATIONS: Cardiovascular, Dr. Ward on 08/20/2017. PROCEDURES: 1. Brain CT on 08/19/2017: Impression: No acute intracranial findings. 2. CT of the cervical spine on 08/19/2017: Impression: Cervical spondylosis, no evidence of acute fr acture or acute traumatic subluxation, left pleural effusion that reaches the apex incompletely visua lized. 3. Chest CT on 08/19/2017: Impression: Moderate-sized loculated chronic appearing left pneumothora x with adjacent left pleural thickening and associated chronic pulmonary scarring and architectural d istortion of the left lung. 4. Knee x-ray on 08/19/2017: Impression: No acute fractures. Mild osteoarthrosis, chondrocalcinos is. 5. Chest x-ray on 08/19/2017: Impression: Moderate to large sized left pneumothorax, associated at electasis of the left lung, especially at the left base. 6. Knee x-ray on 08/19/2017 of the left knee: Impression: No displaced fracture or dislocation is noted. 7. X-ray of the pelvis on 08/19/2017: Impression: Limited study secondary to rotation to the right . No displaced fracture or dislocation seen. 8. CT angiogram of the head and neck with and without contrast. Impression: Arterial structures de monstrate no hemodynamically significant stenosis or evidence of occlusion. 9. Ankle x-ray on 08/20/2017: Impression: Soft tissue swelling with no displaced fracture or dislo cation seen of the right ankle. 10. Chest x-ray on 08/20/2017: Impression: Decrease in loculated pleural air in the left lateral c hest with associated pleural thickening and probable small pleural effusion as well as underlying bul lous emphysema changes and scattered chronic left lung changes, stable right chest. No significant n ew process. 11. Echocardiogram on 08/20/2017: In summary, left ventricular size is normal, ejection fraction vi sually estimated at 50-55%. Inferior wall mildly hypokinetic, left atrium of normal size, mild to mo derate aortic regurgitation is noted. PRIMARY DIAGNOSES: 1. Alcohol dependence. 2. Vitamin B12 deficiency. SECONDARY DIAGNOSES: 1. Marijuana abuse. 2. Polyneuropathy. 3. Macrocytosis. 4. Alcohol dependence. 5. History of multiple falls. DISCHARGE MEDICATIONS: NEW HOME MEDICATIONS: 1. Tylenol 650 mg p.o. q.6h. p.r.n. 2. Aspirin 81 mg p.o. daily. 3. Vitamin B12 1000 mcg p.o. daily for 7 days. 4. Pepcid 20 mg p.o. b.i.d. 5. Nephro-Ember (folic acid/vitamin B complex) 1 tablet p.o. daily. 6. Gabapentin 100 mg p.o. t.i.d. 7. Thiamine 100 mg p.o. daily. HISTORY OF PRESENT ILLNESS/HOSPITAL COURSE: Miladis Mccabe is a 62-year-old male without known past me dical history as he has not been to a physician in a very long time, presented to the ED after being brought in by friends. The patient reports that he fell and was unable to walk and to get help today . Eventually, he was able to get to a phone call his friends. He reports that he has had progressiv e numbness of his lower extremities and increasing frequency and falls over the last several months. He has not sought care by a physician at any time. He reports persistent worsening joint pain. Den ies recent illness, fevers, chills, chest pain, shortness of breath, nausea, vomiting, diarrhea, cons tipation. He is a current everyday smokeless tobacco user and smokes marijuana daily. He drinks evelio roximately 6-8 12 ounce beers a day. Denies bowel or bladder incontinence. The patient stated he wa s down for approximately 3 hours and was able to make it to the bathroom where he fell again and was completely unable to get it back up. He reports no recollection of no syncopal episodes. In the ED, he received a banana bag, Librium and Zofran. His initial vitals were 156/101, heart rate of 80, te mperature of 98.2, respiratory rate 19, pulse ox 99% on 4 liters. Initial labs; white blood cell count 9.9, hemoglobin 16.5, hematocrit 49.1, platelets 153. Sodium 13 3, potassium 3.5, chloride 99, bicarbonate 28, BUN 5, creatinine 0.65, and glucose of 123. CK was 13 28, he had an MCV of 108. There was concern early in the ED for TIA versus CVA. The patient was admitted to the stroke unit. Brain CT was negative. CT angiogram of the head and neck was negative. Echocardiogram was normal. It was likely that his symptoms were attributed to the polyneuropathy. All his frequency and falls h as been attributed to the polyneuropathy likely secondary to chronic significant alcohol use and siobhan min B12 deficiency. The patient was supplemented during his hospital admission with vitamin B12, thi amine and folic acid. Labs were drawn that showed a RBC folate that was normal and a B12 that was 23 8, which is at the low end of normal. Methylmalonic acid is pending. The patient was started on wayne apentin for polyneuropathy pain. The patient expressed no interest in cessation of alcohol. Electro lytes were corrected during his hospital admission and the patient was accepted to [facility] on 08/22/2017. The patient was cleared for discharge at this time with instructions to go to the [facility] and get physical therapy. The patient was also instructed to establish care w ith a primary care provider for routine health maintenance and to continue taking his vitamins. We a lso strongly encouraged the patient to decrease alcohol intake if not quit drinking completely. The patient expressed understanding. DISPOSITION: The patient has a significant polyneuropathy secondary to likely alcohol abuse and siobhan min B12 deficiency. It is unknown whether or not patient will regain all of his normal sensation and strength, but if he continues to take his prescribed medications that will give him his best chance of recovery. DISCHARGE INSTRUCTIONS: 1. Location: [facility]. 2. Diet: Heart healthy. 3. Activity: As tolerated. 4. Followup: [facility]
[2017-08-22 15:53] VITALS: BP 174/104; TEMP 98
[2017-08-24 12:10] LABS: Methylmalonic Acid 214 nmol/L (0-378)
== END 2017-08-22 19:04 | disposition swing bed (61) | DRG 74 ==
LOC: ERS 19:04 → 2SE 08-20 00:57 → ERS 08-20 02:42
PROVIDERS: ADMIT Emergency Medicine; ATTEND Emergency Medicine
DX: G62.1 Alcoholic polyneuropathy (principal); E87.1 Hypo-osmolality and hyponatremia; J93.9 Pneumothorax, unspecified; F10.20 Alcohol dependence, uncomplicated; Y90.9 Presence of alcohol in blood, level not specified; F12.10 Cannabis abuse, uncomplicated; E86.0 Dehydration; W19.XXXA Unspecified fall, initial encounter; Z91.81 History of falling; F17.210 Nicotine dependence, cigarettes, uncomplicated; D75.89 Other specified diseases of blood and blood-forming organs; E53.8 Deficiency of other specified B group vitamins; J44.9 Chronic obstructive pulmonary disease, unspecified; L89.322 Pressure ulcer of left buttock, stage 2; L89.612 Pressure ulcer of right heel, stage 2
CPT/HCPCS: 36415; 70450; 70496; 70498; 71045; 71250; 72125; 72170; 80053; 80061; 80074; 80306; 80307; 81003; 81015; 82553; 82607; 82747; 83036; 83090; 83605; 83735; 83921; 84100; 84439; 84443; 84484; 85014; 85025; 85610; 85730; 86480; 86780; 87040; 87077; 87086; 87149; 87186; 87389; 90471; 90732; 93306; 96365; 96366; A4216; G0009; G8978-GP-CL; G8979-GP-CI; J1650; J3411; J7042; J7050; J7626; Q0162

== ENCOUNTER 2017-11-25 13:01 | Outpatient (CLI) | payer MEDICARE ==
--- NOTE | 2017-11-25 16:15 | MRI ---
MRI LUMBAR SPINE WITHOUT CONTRAST: INDICATIONS: Low back pain with left-sided sciatica. TECHNIQUE: Multiplanar, multisequence MR images were obtained of the lumbar spine. FINDINGS: The conus was seen to terminate at approximately L1. Bone marrow signal intensity is within normal l imits. There is small, 5 mm cyst involving the inferior pole of the left kidney. There is a bony hemangioma within T11. 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 At L5-S1, there is mild facet joint degenerative change but no appreciable central canal or neural fo raminal narrowing. At L4-L5, there is a broad-based bulge with ligamentum flavum hypertrophy, facet degenerative change, and epidural lipomatosis causing moderate to severe central canal narrowing. There is moderate to s evere bilateral neural foraminal narrowing. At L3-L4, there is a broad-based bulge with facet hypertrophy and epidural lipomatosis inducing moder ate central canal narrowing with moderate bilateral neural foraminal narrowing. At L2-L3, there is a broad-based bulge with facet hypertrophy and prominence of the epidural fat jimena cing mild central canal narrowing and moderate right and mild left neural foraminal narrowing. At L1-L2, there is a broad-based bulge with facet hypertrophy inducing moderate bilateral neural fora uvaldo narrowing. At T12-L1, there is an asymmetric to the right, broad-based bulge inducing mild to moderate right karlene ral foraminal narrowing. IMPRESSION: 1. Partial sacralization at L5. 2. Multilevel central canal and neural foraminal narrowing. POS: [facility]
== END 2017-11-25 13:02 | disposition home or self-care (01) ==
LOC: BICMRI 13:01
PROVIDERS: ATTEND Family Medicine
DX: R29.6 Repeated falls (principal); M54.42 Lumbago with sciatica, left side; M54.41 Lumbago with sciatica, right side; M48.061 Spinal stenosis, lumbar region without neurogenic claudication; M99.83 Other biomechanical lesions of lumbar region; Q76.49 Other congenital malformations of spine, not associated with scoliosis
CPT/HCPCS: 72148

== ENCOUNTER 2017-12-20 20:22 | Emergency (ER) | payer MEDICARE ==
--- NOTE | 2017-12-20 21:16 | RAD ---
RIGHT KNEE FOUR VIEWS: 12/20/17 HISTORY: Right knee injury. FINDINGS: Joint spaces are reserved. Prominent chondrocalcinosis. Some calcification over the popliteal fossa a nd suprapatellar bursa also. Calcification with the arterial structures. IMPRESSION: Chronic type findings are stable. No acute osseous abnormalities are demonstrated. Atherosclerosis. POS: [facility]
[2017-12-20] MEDS ORDERED: traMADol HCl 50 MG TAB ONE (21:23)
== END 2017-12-20 21:32 | disposition home or self-care (01) ==
LOC: ERS 20:22
DX: S83.91XA Sprain of unspecified site of right knee, initial encounter (principal); G62.9 Polyneuropathy, unspecified; F32.9 Major depressive disorder, single episode, unspecified; X58.XXXA Exposure to other specified factors, initial encounter

== ENCOUNTER 2018-03-21 13:39 | Outpatient (CLI) | payer MEDICARE ==
--- NOTE | 2018-03-21 16:10 | RAD ---
CERVICAL SPINE SERIES FIVE VIEW FLEXION AND EXTENSION WELL AP VIEWS: FINDINGS: The vertebral bodies are normal in height. There are prominent degenerative facet changes noted. Ther e is fairly pronounced disc narrowing at the C6-7 and C7-T1 levels. Somewhat restricted motion is see n in the lower cervical spine region. Some anterolisthesis of C3 on C4 resolves on flexion, appearing more normal on the extension view. Also there is some minimal anterolisthesis of C3 on C4 in flexion . IMPRESSION: Arthritic changes of the spine. POS: [facility]
--- NOTE | 2018-03-21 16:16 | RAD ---
LUMBAR SPINE FOUR VIEWS INCLUDING STANDING FLEXION AND EXTENSION VIEWS: History: Lumbar stenosis without neurogenic claudication. FINDINGS: Severe generalized disc osteophytosis and facet arthrosis. There is partial sacralization of L5 on th e right side with pseudoarthrosis. Severe multilevel disc osteophytosis and facet arthrosis. No signi ficant acute burst or compression fracture. No significant malalignment. No abnormal translation betw een flexion and extension views. IMPRESSION: Severe spondylosis. Partial sacralization at L5 on the right side with pseudoarthrosis. POS: [facility]
--- NOTE | 2018-03-21 16:32 | MRI ---
MRI CERVICAL SPINE NONCONTRAST: 03/21/18 HISTORY: 62-year-old male with M48.02, cervical spinal stenosis. Cervicalgia and bilateral cervical rad iculopathy. Dr. Tafoya notified Dr. Chan of the very severe central spinal canal stenoses with severe cord comp ressions and cord edema, by text, at 2:54 p.m. on 03/21/18. FINDINGS: Vertebral body heights are maintained. Patchy heterogeneous bone marrow signal, including bone marrow edema, involving facet joints, some in spinous processes, and throughout all vertebral bodies from C 3 through T1. Some of this probably represents Modic type I changes. No suspicious T2 hyperintense si gnal within the disc spaces, except for what is probably extensive annular tears throughout the C3-4 disc. Thickening of posterior longitudinal ligament encroaching upon the ventral aspect of the spinal canal contributing to central spinal canal stenosis at all levels inferior to C1-2. Very severe cent ral spinal canal stenosis throughout almost the entire cervical spine. This is associated with extens mary patchy intramedullary T2 hyperintense signal consistent with cord edema at all levels from lower C2 to upper T1. C1-2: No high grade central stenosis. There is a large joint effusion involving the left atlantoaxial joint. C2-3: Disc space preserved. Broad based disc bulge. Ligamentum flavum thickening. Moderate to severe central stenosis. Moderate bilateral neural foraminal stenosis. Very severe left degenerative facet h ypertrophy. Mild to moderate right degenerative facet changes. C3-4: Mild disc space narrowing. Slight anterolisthesis of C3 on C4 due to bilateral facet DJD. Very severe left degenerative facet hypertrophy. Mild to moderate right facet DJD. Very severe central spi nal canal stenosis, with obliteration of CSF signal, and indentation of ventral and dorsal aspects of the spinal cord by calcified disc bulge and ligamentum flavum thickening, respectively. Severe righ t neural foraminal stenosis and extremely severe left neural foraminal stenosis. C4-5: Disc space preserved. Central and bilateral paracentral focal disc herniation(s) which deeply i ndents the ventral surface of the spinal cord. Ligamentum flavum thickening indents the dorsal aspect of the spinal cord. Complete obliteration of CSF signal. Very severe central spinal canal stenosis. Bilateral moderate to large uncinate process osteophytes. Severe bilateral neural foraminal stenosis. Severe left degenerative facet hypertrophy. Relatively normal right facet joint. C5-6: Moderate to severe disc space narrowing. Degenerative retrolisthesis of C5 on C6. Irregularly s haped broad-based central and bilateral paracentral prominent disc herniation, asymmetrically larger on the right side compared to the left, deeply indents the spinal cord. Extremely severe central spin al canal stenosis. Large bilateral uncinate process osteophytes cause very severe bilateral neural fo raminal stenosis. Mild left facet DJD. Relatively normal right facet joint. C6-7: Somewhat severe disc space narrowing. Mild left facet DJD. Relatively normal right facet joint. Central and bilateral paracentral diffuse disc bulge encroaches upon the ventral aspect of the spina l canal. Severe central spinal canal stenosis. Large bilateral uncinate process osteophytes. Extremel y severe right neural foraminal stenosis. Severe left neural foraminal stenosis. C7-T1: Moderate to severe bilateral facet DJD results in grade I anterolisthesis of C7 on T1. Diffuse disc bulge encroaches upon the central aspect of the spinal canal. Ligamentum flavum thickening encr oaches upon posterior aspect of the spinal canal. Severe central spinal canal stenosis. Extremely sev ere bilateral neural foraminal stenosis. T1-2: Imaged only on sagittal sequences. No severe central stenosis. There is severe right neural for aminal stenosis. Mild left neural foraminal stenosis. IMPRESSION: 1. Severe cervical spondylosis with several levels of severe degenerative disc disease and multi ple levels of left sided very severe facet osteoarthrosis. 2. Multilevel very severe chronic central spinal canal stenosis with multilevel severe chronic c ord compression, resulting in diffuse cord edema throughout almost the entire cervical spine cord. 3. Multiple levels of severe bilateral neural foraminal stenosis, including very severe. ADDENDUM: Dr. Tafoya notified Dr. Chan's neurosurgery PA Isidra Cramer, by both text message and voicemail of the findings at 3:32 pm 03/21/2018. She texted back a reply acknowledging receipt of the messages at 4:45 pm 03/21/2018. POS: [facility]
--- NOTE | 2018-03-21 17:23 | MRI ---
MRI THORACIC SPINE NONCONTRAST: 03/21/18 HISTORY: 62-year-old male with M54.6 - acute thoracic back pain. FINDINGS: There is severe cervical spondylosis with multilevel severe central cervical spinal canal stenosis an d multilevel severe cervical bilateral neural foraminal stenosis, involving most levels of the cervic al spine, down to the C7-T1 level. There is also cord swelling and cord edema throughout most levels of the cervical spine. See separate report of the C-spine MRI. There is mild right-convexed lateral curvature of the mid thoracic spine. Vertebral body heights are maintained. There are associated discogenic degenerative changes, including Modic type I end plate ma rrow edema, on the left, concave side of the curvature at T7-8, and to a lesser degree T8-9. There a re broad based disc bulges or disc-osteophytic bar complexes indenting the ventral aspect of the spin al canal and thecal sac at multiple levels throughout the upper and lower thoracic spine. They do not contact the spinal inferior to the T1 level. At T11-12, in addition to the broad based disc-osteophy tic bar complex, there is also moderate ligamentum flavum thickening, which abuts the dorsal surface of the spinal cord, and mildly displace the lower spinal cord anteriorly, and cause moderate central spinal canal stenosis at that level. In addition to the very severe bilateral neural foraminal stenos is at C7-T1, there is also neural foraminal stenosis at other levels in the thoracic spine proper, in cluding moderate at right T1-2, severe at right T2-3, moderate to severe left T2-3, moderate to sever e left T3-4, moderate right T8-9. Severe left T8-9. Severe bilateral T9-10, T10-11 and T11-12. Slight anterolisthesis of T11 on T12 due to moderate to severe bilateral degenerative facet disease at that level. Varying degrees of degenerative facet disease at other levels, moderate to severe, throughout the mid and lower levels of the thoracic spine. Vertebral body heights are maintained. Large hemangi teddy of bone at T12 with atypical signal characteristics on the left side of the vertebral body. The t horacic spinal cord is normal in size and signal. No cord edema or syrinx in the thoracic spinal cord proper below the T1 level. IMPRESSION: 1. Multilevel high grade neural foraminal stenosis in the thoracic spine. 2. Right-convex lateral curvature of the thoracic spine, associated with high grade discogenic d egenerative changes at the left, concave side of the curvature, at T7-8 and T8-9. 3. No severe central spinal canal stenosis in the thoracic spine proper. 4. Multilevel chronic cord compressions with extensive cord edema, very severe central spinal ca nal stenoses and very severe neural foraminal stenosis throughout the cervical spine. Please see the separate report of the cervical spine MRI. Code T POS: [facility]
== END 2018-03-21 13:40 | disposition home or self-care (01) ==
LOC: BICMRI 13:39
PROVIDERS: ATTEND Neurological Surgery
DX: M48.02 Spinal stenosis, cervical region (principal); M48.061 Spinal stenosis, lumbar region without neurogenic claudication; M54.6 Pain in thoracic spine; M47.816 Spondylosis without myelopathy or radiculopathy, lumbar region; M47.812 Spondylosis without myelopathy or radiculopathy, cervical region; M48.04 Spinal stenosis, thoracic region; M47.814 Spondylosis without myelopathy or radiculopathy, thoracic region; G95.20 Unspecified cord compression; M43.8X4 Other specified deforming dorsopathies, thoracic region; G95.19 Other vascular myelopathies; M50.30 Other cervical disc degeneration, unspecified cervical region
CPT/HCPCS: 72050; 72110; 72141; 72146

== ENCOUNTER 2018-03-26 00:26 | Emergency (ER) | payer MEDICARE ==
[2018-03-26] MEDS ORDERED: Bacitracin Zinc 1 Packet ONE (03:49)
== END 2018-03-26 04:40 | disposition home or self-care (01) ==
LOC: ERS 00:26
DX: S40.812A Abrasion of left upper arm, initial encounter (principal); S40.811A Abrasion of right upper arm, initial encounter; F17.220 Nicotine dependence, chewing tobacco, uncomplicated; F32.9 Major depressive disorder, single episode, unspecified; G62.9 Polyneuropathy, unspecified; W18.30XA Fall on same level, unspecified, initial encounter
CPT/HCPCS: 51703; 93005

== ENCOUNTER 2018-04-22 05:57 | Inpatient (IN) | payer MEDICARE ==
[2018-04-21 11:47] VITALS: BMI 20.2
--- NOTE | 2018-04-21 20:30 | HP ---
HISTORY OF PRESENT ILLNESS: Mr. Mccabe is a 62-year-old male who reports to our office for evaluation of lower extremity numbness and tingling. The patient states that his hands have been numb for approximately eight months and he has been off balance for quite some time. He states that his feet and legs have been numb as well and most recently, in the last 3-4 weeks he has had abdominal numbness. He states that if he presses over his bladder, he cannot feel if it is . The patient states that he has been falling and he has generalized weakness as well. He states that he cannot open jars. He states that he was in the inpatient rehab for approximately a month in August and at that time he was able to increase a bit of his strength, but since then it is gone downhill significantly. The patient states that he has not been taking any pain medications or had any injections. REVIEW OF SYSTEMS: A 10-point review of systems has been completed, is negative other than stated in the above HPI. PAST MEDICAL HISTORY: Chronic pain, arthritis, allergies, depression. PAST SURGICAL HISTORY: Total knee replacement, shoulder surgery, bilateral knee replacements. HOSPITALIZATIONS: Fall in 11/2017, fall in 07/2017. FAMILY HISTORY: Father is , diagnosed with stroke. Mother is alive, diagnosed with cancer. Children . SOCIAL HISTORY: The patient is a smoker. He uses alcohol. Denies drug use and is not sexually active. MEDICATIONS: Denies medications. ALLERGIES: SULFA. PHYSICAL EXAMINATION: HEENT: Normal. Head is normocephalic and atraumatic. Pupils are equal, round, and reactive to light. Extraocular movements are intact. Hearing is intact. Moist mucous membranes. NECK: Normal, soft, supple. No masses are noted. Range of motion is intact and nonpainful. NEUROLOGIC: Awake, alert, oriented x3. Memory, attention, and fund of knowledge are normal. Cranial nerves: Cranial nerves are grossly intact. EXTREMITIES: Upper extremities, generalized upper extremity weakness 4-/5 deltoids, biceps, triceps, wrist extension, finger extension, finger intrinsics. Brisk reflexes. Lower extremities, 4-/5 bilateral hip flexion, knee flexion, knee extension, dorsiflexion, plantar flexion, EHL. Pain with right hip rotation. Lumbar spine tenderness, 2-to 3-beat clonus. No Babinski. IMAGING: MRI, cord compression with T2 signal change at C3-C4 to C7-T1. Flexion-extension x-rays, no instability at C1-C2 in spite of synovial cyst. ASSESSMENT AND PLAN: Cervical myelopathy with cervical stenosis of the spine. We have offered surgery for laminectomy and fusion of C3 through T1. The patient had informed consent. We have discussed indications, risks, benefits, alternatives, expected results from the surgery. The risks discussed include, but were not limited to, bleeding, infection, CSF leak, nerve damage, weakness, spinal cord injury incontinence, paralysis, ventilator dependence, wheelchair dependence, loss of vision, hardware misplacement, cardiopulmonary complications of anesthesia, or . Long-term complications discussed include, but were not limited to hardware failure and degradation of surrounding disks. He states he understands the risks and is willing to proceed with surgery. Job ID: [id number]
[2018-04-22] MEDS ORDERED: Thrombin 5000 UNITS/5 ML VIAL ONE (06:17)
[2018-04-22] MEDS ORDERED: Bupivacaine HCl 0.5%/Epinephrine 1:200,000/PF 30 ml Vial ONE (06:17)
[2018-04-22] MEDS ORDERED: Sodium Chloride 0.9% 20 ML ONE (06:17)
[2018-04-22] MEDS ORDERED: Bacitracin Zinc Ointment 30 gm TUBE ONE (06:17)
[2018-04-22 06:46] LABS: Prothrombin Time 13.2 SEC (12.0-14.7)
[2018-04-22 06:49] LABS: PTT 21.9 SEC (22.9-36.1)
[2018-04-22 06:53] LABS: Mean Corpuscular HGB CONC 31.2 g/dL (32.0-36.0); Mean Corpuscular Hemoglobin 33.5 pg (27.0-31.0); Mean Platelet Volume 10.4 fL (7.4-10.4); Platelet Count 118 thou/uL (130-400); RBC Distribution Width 13.5 % (11.5-14.5); Red Blood Cell (RBC) Count 5.65 mill/uL (4.70-6.10)
[2018-04-22] MEDS ORDERED: Fentanyl 250 MCG/5 ML VIAL ONE (06:58)
[2018-04-22] MEDS ORDERED: PHENYLEPHRINE-NS 100 MCG/ML 10 ML SYRINGE ONE ×2 (08:22→15:45)
[2018-04-22] MEDS ORDERED: manNITOL 20% 0 ML ONE (08:22)
[2018-04-22] MEDS ORDERED: Phenylephrine HCL 10 MG/ML VIAL ONE (09:19)
[2018-04-22] MEDS ORDERED: Albumin 5% 500 ML ONE (09:19)
[2018-04-22] MEDS ORDERED: Rocuronium Bromide 50 MG/5 ML VIAL ONE (09:23)
[2018-04-22] MEDS ORDERED: SUGAMMADEX SODIUM 200 MG/2 ML VIAL ONE (12:19)
[2018-04-22] MEDS ORDERED: Morphine 4 MG/ML VIAL SLOW IVP PRN ×2 (12:20)
[2018-04-22] MEDS ORDERED: Milk Of Magnesia 30 ML UDCUP PO PRN (12:20)
[2018-04-22] MEDS ORDERED: Acetaminophen 650 MG Suppository PR PRN (12:20)
[2018-04-22] MEDS ORDERED: Promethazine HCl 25 MG/ML VIAL IM PRN ×2 (12:20→12:40)
[2018-04-22] MEDS ORDERED: diphenhydrAMINE 50 MG/ML VIAL IVP PRN (12:20)
[2018-04-22] MEDS ORDERED: Acetaminophen 325 MG TAB PO PRN (12:20)
[2018-04-22] MEDS ORDERED: Bisacodyl 10 MG SUPP PR PRN (12:20)
[2018-04-22] MEDS ORDERED: Acetaminophen/Codeine 30-300mg Tablet PO PRN (12:20)
[2018-04-22] MEDS ORDERED: Ondansetron PF 4 MG/2 ML Vial IVP PRN (12:20)
[2018-04-22] MEDS ORDERED: traMADol HCl 50 MG TAB PO PRN (12:20)
[2018-04-22] MEDS ORDERED: Fentanyl 100 MCG/2 ML VIAL ONE ×3 (12:37→13:03)
[2018-04-22] MEDS ORDERED: Morphine Sulfate 2 MG/ML SYRINGE SLOW IVP PRN (12:40)
[2018-04-22] MEDS ORDERED: PACU-Morphine 4MG/ML VIAL SLOW IVP PRN (12:40)
[2018-04-22] MEDS ORDERED: Promethazine HCl 25 MG/ML VIAL SLOW IVP PRN (12:40)
[2018-04-22] MEDS ORDERED: Ondansetron HCl/PF 4 MG/2 ML Vial IVP PRN (12:40)
--- NOTE | 2018-04-22 12:41 | OP ---
DATE OF PROCEDURE: 04/22/2018 MONITOR TECH: Isidra Castaneda PA-C. PREOPERATIVE INDICATION: Prevent further neurological deterioration. PREOPERATIVE DIAGNOSIS: Multilevel cervical spinal stenosis with severe myelopathy. POSTOPERATIVE DIAGNOSIS: Multilevel cervical spinal stenosis with severe myelopathy. PROCEDURES PERFORMED: Decompressive laminectomy with medial facetectomy and foraminotomy at C3, C4, C5, C6, C7, and T1; lateral mass screws at C3, C4, C5, C6, C7, and T1; posterolateral arthrodesis at C3-C4, C4-C5, C5-C6, C6-C7, and C7-T1; local morselized autograft; morselized allograft. PREOPERATIVE MEDICATIONS: Ancef 2 g IV. DRAIN NUMBER: 1. DRAIN TYPE: 10-[place] Alex. DESCRIPTION OF PROCEDURE: The patient was brought to the operating room. General endotracheal anesthesia was induced. Keeping the neck in normal anatomic alignment, we carefully positioned the patient prone on gel-filled chest rolls, and the head was immobilized with Lewis pin and heading matcher and assembler. The back of the neck was sterilely prepped and draped. We opened a midline incision in the suboccipital area down to the upper thoracic spine in the midline. We controlled bleeding with bipolar and monopolar cautery. We used monopolar cautery to dissect through subcutaneous tissues to the ligamentum nuchae. We cut this ligament in the midline and reflected paraspinal muscles off the spinous process and lamina of C3, C4, C5, C6, C7, and T1. Self-retaining retractors were placed, and a lateral fluoro radiograph was used to confirm the levels upon which we were operating. We then brought a high-speed drill into the field. Using a art bit, we thinned the lamina on either side from C3 to C7. Using Kerrison rongeurs, we opened a vertical laminotomy from C7 all the way to C3 on either side. I then removed the spinous processes and laminae as a single segment. We decompressed the lateral recesses with 2-mm Kerrison rongeurs and made sure with foraminotomies that each nerve root was well decompressed. We used a high-speed jair to drill down the superior portion of the T1 lamina. Using Kerrison rongeur, we removed the superior 9 mm of the T1 lamina and widened that laminectomy by performing medial facetectomies and foraminotomies over the T1 nerve roots. We identified the pedicles of T1. Using a lateral fluoro radiograph and palpation of the medial portion of the pedicles, we chose entry points for T1 pedicle screws. We drilled out the bone and then used a hand drill to drill our trajectory. We probed our trajectory and found it completely encased in bone on both sides. We placed a 24-mm pedicle screws into the pedicles at T1 bilaterally. We then used a high-speed drill and drilled out the midpoint of each lateral mass from C3 to C7. Using a hand drill, we drilled our trajectories for lateral mass screws from C3 to C7. We placed 14-mm lateral mass screws into both lateral masses at C3, C4, C5, C6, and C7. We irrigated copiously with bacitracin irrigation. We brought the rods into the field and cut them to the appropriate length. We bent them to incorporate the caps of each of the screws. We tightened caps over the rods to the appropriate tightness with a torque/counter-torque mechanism. We irrigated once again with bacitracin irrigation. We then used a high-speed drill and a cutting jair to decorticate the lateral mass from C3 to T1 on both sides. We left demineralized bone matrix and morselized autograft as our posterolateral fusion substrate over the decorticated bone. The autograft was obtained from our spinous processes, which were cleaned of soft tissue attachments, morcellized, and added to demineralized bone matrix as our fusion substrate. We irrigated the center of the wound once again. We tunneled a drain inferiorly through a separate stab incision. We treated the wound with vancomycin powder, and we closed in anatomical layers. This was a clean case, no contamination. Job ID: [id number]
[2018-04-22] MEDS: Sodium Chloride 0.9% 1,000 ML IV SCH (15:42)
[2018-04-22] MEDS: CEFAZOLIN 2 GM in Premix Bag 1 BAG IVPB SCH ×2 (15:42→21:05)
[2018-04-22] MEDS ORDERED: Lidocaine 1% PF 5 ML VIAL ONE (15:45)
[2018-04-22] MEDS ORDERED: PROPOFOL 200 MG/20 ML VIAL ONE (15:45)
[2018-04-22] MEDS ORDERED: Ondansetron PF 4 MG/2 ML Vial ONE (15:45)
[2018-04-22] MEDS ORDERED: ePHEDrine 50 MG/ML VIAL ONE (15:45)
[2018-04-22] MEDS ORDERED: Rocuronium Bromide 10 MG/ML (10ML VIAL) ONE (15:45)
[2018-04-22] MEDS ORDERED: Glycopyrrolate 0.2 MG/ML 5 ML SYRINGE ONE (15:45)
[2018-04-22] MEDS ORDERED: Dexamethasone 20 MG/5 ML VIAL ONE (15:45)
[2018-04-22] MEDS: Acetaminophen/Codeine 30-300mg Tablet PO PRN (18:45)
[2018-04-22] MEDS: traMADol HCl 50 MG TAB PO PRN (20:41)
[2018-04-22] MEDS: Mag-Al 1200 mg/1200 mg/30 ML UDCUP PO PRN (21:05)
[2018-04-22] MEDS: tiZANidine HCl 4 MG TAB PO PRN (22:49)
[2018-04-23] MEDS: Sodium Chloride 0.9% 1,000 ML IV SCH ×2 (00:55→15:13)
[2018-04-23] MEDS: CEFAZOLIN 2 GM in Premix Bag 1 BAG IVPB SCH ×3 (05:22→21:50)
[2018-04-23] MEDS: Tamsulosin HCl 0.4 MG CAP PO PRN (06:50)
--- NOTE | 2018-04-23 07:58 | PRG ---
DATE OF SERVICE: 04/23/2018 Mr. Mccabe is 1 day out from laminectomy with fusion in the cervical thoracic spine for severe spondylotic myelopathy. He had urinary retention as expected. He undoubtedly had retention before surgery as well. He notes that his arms and hands feel markedly better than they did yesterday. He is anxious to start his rehab from this. His vitals are stable. The drain has put out 70 mL in the last 12 hours. The neurological function is much better with the interosseous muscles especially strong on the left and strong on the right, much improved from prior to surgery. Mr. Mccabe would benefit from aggressive inpatient rehabilitation. His spondylotic myelopathy will improve overtime and with rehab, he can hopefully return to safe activities of daily living. He should wear a collar when he is out of bed during therapy, but he does not have to sleep in it. I think the drain could come out later today as long as it drops below an average of 5 mL an hour. Job ID: [id number]
[2018-04-23] MEDS: traMADol HCl 50 MG TAB PO PRN ×2 (10:28→18:17)
[2018-04-23] MEDS: Mag-Al 1200 mg/1200 mg/30 ML UDCUP PO PRN ×2 (11:41→18:17)
[2018-04-23] MEDS: Acetaminophen/Codeine 30-300mg Tablet PO PRN (13:57)
[2018-04-23] MEDS: diphenhydrAMINE 25 MG CAP PO PRN (21:51)
[2018-04-23] MEDS: Promethazine 25 MG TAB PO PRN (21:51)
--- NOTE | 2018-04-24 01:42 | CON ---
DATE OF CONSULTATION: REASON FOR CONSULTATION: Medical management. HISTORY OF PRESENT ILLNESS AND REVIEW OF SYSTEMS: Mr. Mccabe is a pleasant 62-year-old man, who presented with complaints of bilateral lower extremity numbness as well as numbness in the bilateral hands. He underwent MRI imaging and noted to have cord compression with T2 signal change at C3-C4 to C7-T1. The patient was admitted for a cervical myelopathy with cervical stenosis and has undergone laminectomy with fusion in the cervical thoracic spine. The patient has no past medical history and is without any major complaints at this time, except for feeling fatigued. He denies having any fevers or chills. Denies having any headaches or dizziness. No chest pain, palpitations, or shortness of breath. Has not experienced any nausea or vomiting. The pain is well controlled at present. He does report feeling very tired and states he has not slept well in the last couple of nights. Denies having any abdominal pain or cramping. No nausea or vomiting. He has a Zarate catheter in place. All other review of systems is negative. ALLERGIES: SULFA. HOME MEDICATIONS: None. PAST MEDICAL HISTORY: 1. Chronic pain. 2. Arthritis. 3. Allergies. 4. Depression. 5. Severe spondylotic myelopathy, status post laminectomy with fusion of the cervical thoracic spine, done 04/22/2018. 6. Total knee replacement. 7. Shoulder surgery. 8. Bilateral knee replacement. SOCIAL HISTORY: The patient is a smoker. He denies any illicit drug use. He drinks alcohol occasionally. PHYSICAL EXAMINATION: GENERAL: The patient is found resting. He is in no acute distress. VITAL SIGNS: Temperature 98.2, pulse 75, respirations 17, O2 saturation 94% on room air, and blood pressure 105/67. HEENT: Normocephalic and atraumatic. Pupils are equal, round, and reactive to light. Sclerae icterus. Oropharynx is clear. NECK: Supple. No lymphadenopathy. LUNGS: Clear to auscultation bilaterally without wheezes, rales, or rhonchi. CARDIAC: Regular rate and rhythm. ABDOMEN: Soft, nontender, nondistended. Normoactive bowel sounds present. EXTREMITIES: No clubbing, cyanosis, or edema. NEUROLOGIC: Alert and oriented x3. SKIN: Without rash or jaundice. LABORATORY DATA: White blood count done yesterday showed white count of 9, hemoglobin 19, hematocrit 60.7, platelets 118. PT 13.2, INR 1.0, PTT 21.9. IMAGING DATA: None. PROCEDURES: As mentioned above. The patient is status post laminectomy with fusion of the cervical thoracic spine. IMPRESSION AND PLAN: Mr. Mccabe is a 62-year-old man, with history of chronic pain, arthritis, and depression, who has undergone spinal surgery as mentioned above. The patient is doing very well at this present time. He has no other comorbidities and is not on any medications. Initially, it appears he had a mildly elevated blood pressure 156/94, however, this has normalized. It may have been elevated due to pain. Do continue to monitor his blood pressure. If any further input is needed, please feel free to call us. The patient's case was discussed with Dr. Cortez, who agrees with assessment as above. Job ID: [id number]
[2018-04-24] MEDS: Sodium Chloride 0.9% 1,000 ML IV SCH ×2 (03:35→18:04)
[2018-04-24] MEDS: CEFAZOLIN 2 GM in Premix Bag 1 BAG IVPB SCH ×3 (06:36→21:44)
[2018-04-24] MEDS: traMADol HCl 50 MG TAB PO PRN ×2 (06:36→21:45)
--- NOTE | 2018-04-24 07:12 | PRG ---
DATE OF SERVICE: 04/24/2018 Miladis Mccabe is in his hospital room this morning. He is recovering from decompressive laminectomy for severe cervical spondylitic myelopathy. He is able to walk yesterday. His balance is improved from before surgery. Continues to be impressed with his return of function in the upper extremities. He is very pleased with the results of the surgery thus far. The drain was removed yesterday. Overnight, no fevers were recorded on our electronic vital sign chart. A blood pressures have been in the 100s to 120. Mr. Mccabe's neurological function, upper extremities improved since surgery. Plan for Mr. Mccabe is to go to inpatient rehabilitation. He will need this for maximum chance of recovery from his myelopathy. Job ID: [id number]
[2018-04-24] MEDS: Tamsulosin HCl 0.4 MG CAP PO PRN (07:20)
[2018-04-24 09:39] LABS: #Lymphocytes 1.2 thou/uL (1.20-3.40); #Monocytes 0.9 thou/uL (0.11-0.59); #Neutrophils 5.1 thou/uL (1.40-6.50); %Basophils 0.6 % (0.0-1.0); %Eosinophils 0.4 % (0.0-10.0); %Lymphocytes 16.6 % (21.0-51.0); %Neutrophils 70.4 % (42.0-75.0); Hemoglobin 13.7 g/dL (14.0-18.0); Mean Corpuscular HGB CONC 32.6 g/dL (32.0-36.0); Mean Corpuscular Hemoglobin 34.2 pg (27.0-31.0); Mean Platelet Volume 9.3 fL (7.4-10.4); Platelet Count 120 thou/uL (130-400); RBC Distribution Width 13.1 % (11.5-14.5); Red Blood Cell (RBC) Count 3.99 mill/uL (4.70-6.10); White Blood Cell (WBC) Count 7.2 thou/uL (4.8-10.8)
[2018-04-24 09:51] LABS: Anion Gap 9 mmol/L (10-20); BUN (Urea Nitrogen) 4 mg/dL (8.4-25.7); Calc. Creatinine Clearance 114 mL/min (70-130); Calcium 8.2 mg/dL (7.8-10.44); Carbon Dioxide 28 mmol/L (23-31); Chloride 98 mmol/L (98-107); Estimated GFR-MDRD Greater than 90; Glucose 75 mg/dL (80-115); Potassium 3.6 mmol/L (3.5-5.1); Sodium 131 mmol/L (136-145)
[2018-04-24] MEDS: diphenhydrAMINE 25 MG CAP PO PRN ×2 (14:00→19:46)
--- NOTE | 2018-04-24 16:26 | PDOC.PN ---
- Subjective Encounter Start Date: 04/24/18 Encounter Start Time: 10:00 Subjective: pt up in bed no complains, no numbness or tingling - Objective Vital Signs & Weight: Vital Signs (12 hours) Temp Pulse Resp BP Pulse Ox 04/24/18 15:34 97.9 F 111 H 16 149/54 H 94 L 04/24/18 11:42 98.0 F 81 20 103/67 91 L 04/24/18 08:00 94 L 04/24/18 07:23 98.2 F 84 20 123/74 94 L 04/24/18 04:30 98.4 F 83 16 110/73 94 L Weight Weight 141 lb I&O: 04/23/18 04/24/18 04/25/18 06:59 06:59 06:59 Intake Total 3560 1300 Output Total 4310 4475 Balance -776 -9488 Result Diagrams: 04/24/18 09:09 04/24/18 09:09 Phys Exam - Physical Examination Respiratory: no wheezing, no rales, no rhonchi, wheezing present, clear to auscultation bilateral Cardiovascular: RRR, no significant murmur, no rub, gallop, irregular Gastrointestinal: soft, non-tender, no distention, positive bowel sounds Musculoskeletal: no edema, pulses present, edema present cervical dressing intact Dx/Plan (1) Polycythemia Code(s): D75.1 - SECONDARY POLYCYTHEMIA Status: Acute (2) S/P laminectomy Code(s): Z98.890 - OTHER SPECIFIED POSTPROCEDURAL STATES Status: Acute - Plan pt does not have sleep apnea, he denied smoking however previous documents -: states he does smoke. his hbg and hct is improving. will continue to -: monitor. * . Review of Systems - Review of Systems Cardiovascular: negative: chest pain, palpitations, orthopnea, paroxysmal nocturnal dyspnea, edema, light headedness, other Gastrointestinal: negative: Nausea, Vomiting, Abdominal Pain, Diarrhea, Constipation, Melena, Hematochezia, Other - Medications/Allergies Allergies/Adverse Reactions: Allergies Allergy/AdvReac Type Severity Reaction Status Date / Time Sulfa (Sulfonamide Allergy Hives Verified 04/21/18 11:47 Antibiotics) Medications: Current Medications Acetaminophen (Tylenol) 650 mg PO Q4H PRN PRN Reason: Headache/Fever or Pain Acetaminophen (Tylenol) 650 mg [place] Q4H PRN PRN Reason: Headache/Fever or Pain Acetaminophen/Codeine Phosphate (Tylenol #3) 1 tab PO Q3H PRN PRN Reason: Mild Pain (1-3) Acetaminophen/Codeine Phosphate (Tylenol #3) 2 tab PO Q3H PRN PRN Reason: Moderate Pain (4-6) Last Admin: 04/23/18 13:57 Dose: 2 tab Al Hydroxide/Mg Hydroxide (Maalox) 30 ml PO Q4H PRN PRN Reason: Indigestion Last Admin: 04/23/18 18:17 Dose: 30 ml Bisacodyl (Dulcolax) 10 mg [place] Q12H PRN PRN Reason: Constipation Diphenhydramine HCl (Benadryl) 25 mg IVP Q6H PRN PRN Reason: Itching Diphenhydramine HCl (Benadryl) 25 mg PO Q6H PRN PRN Reason: Itching Last Admin: 04/24/18 14:00 Dose: 25 mg Cefazolin Sodium/Dextrose 2 gm (/ Device) 50 mls @ 100 mls/hr IVPB Q8HR [facility] Last Admin: 04/24/18 14:00 Dose: 50 mls Sodium Chloride (Normal Saline 0.9%) 1,000 mls @ 75 mls/hr IV .[id number] [facility] Last Admin: 04/24/18 03:35 Dose: Not Given Magnesium Hydroxide (Milk Of Magnesium) 30 ml PO Q12H PRN PRN Reason: Constipation Last Admin: 04/23/18 18:17 Dose: 30 ml Morphine Sulfate (Morphine) 2 mg SLOW IVP Q1H PRN PRN Reason: Moderate Breakthrough Pain Morphine Sulfate (Morphine) 4 mg SLOW IVP Q1H PRN PRN Reason: Severe Breakthrough Pain Ondansetron HCl (Zofran) 4 mg IVP DAILYPRN PRN PRN Reason: Nausea Pantoprazole Sodium (Protonix) 40 mg PO DAILY [facility] Last Admin: 04/24/18 10:20 Dose: 40 mg Promethazine HCl (Phenergan) 12.5 mg PO Q4H PRN PRN Reason: Nausea/Vomiting Last Admin: 04/23/18 21:51 Dose: 12.5 mg Promethazine HCl (Phenergan) 12.5 mg IM Q4H PRN PRN Reason: Nausea/Vomiting Sodium Chloride (Flush - Normal Saline) 10 ml IVF PRN PRN PRN Reason: Saline Flush Tamsulosin HCl (Flomax) 0.4 mg PO 0600 PRN PRN Reason: urinary retention Last Admin: 04/24/18 07:20 Dose: 0.4 mg Tizanidine HCl (Zanaflex) 4 mg PO Q6H PRN PRN Reason: Muscle Spasm Last Admin: 04/22/18 22:49 Dose: 4 mg Tramadol HCl (Ultram) 50 mg PO Q6H PRN PRN Reason: Mild Pain (1-3) Tramadol HCl (Ultram) 100 mg PO Q6H PRN PRN Reason: Moderate Pain (4-6) Last Admin: 04/24/18 06:36 Dose: 100 mg
[2018-04-24] MEDS: Acetaminophen/Codeine 30-300mg Tablet PO PRN (17:37)
[2018-04-24] MEDS: Promethazine 25 MG TAB PO PRN (21:47)
[2018-04-25] MEDS: Sodium Chloride 0.9% 1,000 ML IV SCH (06:10)
[2018-04-25] MEDS: Tamsulosin HCl 0.4 MG CAP PO PRN (06:14)
[2018-04-25] MEDS: traMADol HCl 50 MG TAB PO PRN ×2 (06:15→21:16)
[2018-04-25] MEDS: CEFAZOLIN 2 GM in Premix Bag 1 BAG IVPB SCH ×3 (06:15→21:15)
--- NOTE | 2018-04-25 07:05 | PRG ---
DATE OF SERVICE: 04/25/2018 I saw Miladis Mccabe in his hospital room this morning. He has some pain at the surgical site and a bit of drainage, but otherwise he feels very good after his cervical decompression and fusion. His hands and balance are much better than they were before. It is certainly not normal, but the improvement is traumatic. Overnight, the vital signs have been stable. I do not see a recorded fever. Blood pressures have been in the 104 to 140 range. SKIN: There is some drainage on the bandage, but it was not changed since yesterday. I think this is reasonable that once an inpatient rehabilitation bed is available that he can be transferred. Job ID: [id number] [facility]TDD
[2018-04-25] MEDS: diphenhydrAMINE 25 MG CAP PO PRN ×2 (12:08→21:16)
[2018-04-25] MEDS: tiZANidine HCl 4 MG TAB PO PRN (21:16)
[2018-04-25] MEDS: Promethazine 25 MG TAB PO PRN (22:07)
[2018-04-26] MEDS: Sodium Chloride 0.9% 1,000 ML IV SCH ×3 (01:39→23:13)
[2018-04-26] MEDS: CEFAZOLIN 2 GM in Premix Bag 1 BAG IVPB SCH ×3 (05:20→21:20)
[2018-04-26] MEDS: Tamsulosin HCl 0.4 MG CAP PO SCH (05:20)
[2018-04-26] MEDS: diphenhydrAMINE 25 MG CAP PO PRN ×3 (06:25→22:41)
[2018-04-26 06:38] LABS: Anion Gap 8 mmol/L (10-20); BUN (Urea Nitrogen) 5 mg/dL (8.4-25.7); Calc. Creatinine Clearance 119 mL/min (70-130); Calcium 8.4 mg/dL (7.8-10.44); Carbon Dioxide 29 mmol/L (23-31); Chloride 96 mmol/L (98-107); Estimated GFR-MDRD Greater than 90; Glucose 92 mg/dL (80-115); Sodium 129 mmol/L (136-145)
[2018-04-26 06:53] LABS: Band 1 % (5-11); Hemoglobin 13.5 g/dL (14.0-18.0); Lymphocytes 7 % (21-51); MDiff Complete? YES; Mean Corpuscular HGB CONC 32.7 g/dL (32.0-36.0); Mean Corpuscular Hemoglobin 35.6 pg (27.0-31.0); Mean Platelet Volume 8.7 fL (7.4-10.4); Monocytes 2 % (0-10); Neutrophil 90 % (42-75); Platelet Count 163 thou/uL (130-400); Platelet Morphology Comment Appears Adequate; RBC Morphology Normal; White Blood Cell (WBC) Count 7.7 thou/uL (4.8-10.8)
--- NOTE | 2018-04-26 12:01 | PRG ---
DATE OF SERVICE: 04/26/2018 SUBJECTIVE: Mr. Mccabe is postoperative day 4 following cervical laminectomy and fusion for severe myelopathy. He is doing well. It appears as if he has improved fine motor coordination in his hands, he still is able to get his upper extremities not quite up to 90 degrees shoulder flexion or abduction point, but he has already been mobilizing in the lee and he feels as well as if he is walking with more vigor. He has findings consistent with atrophy in the four extremities and myelopathy, but again all things considered. The patient is doing very well. His wound is dry and I have assisted myself and replaced his bandage. We are awaiting rehab from metabolic standpoint. His sodium is 129, although I suspect he has longstanding hyponatremia just a couple of days ago was 131. The plan at this point is inpatient rehab. Job ID: [id number]
[2018-04-26] MEDS: traMADol HCl 50 MG TAB PO PRN (13:03)
[2018-04-26] MEDS ORDERED: Polyethylene Glycol 3350 17 GM Packet PO PRN (20:30)
[2018-04-26] MEDS: Senokot S 8.6-50 MG TAB PO SCH (21:19)
[2018-04-26] MEDS: Promethazine 25 MG TAB PO PRN (21:56)
[2018-04-26] MEDS: tiZANidine HCl 4 MG TAB PO PRN (21:56)
--- NOTE | 2018-04-26 22:27 | PDOC.PN ---
- Subjective Encounter Start Date: 04/26/18 Encounter Start Time: 12:30 Patient seen and examined for med mngt. Feels better. No CP/SOB. No new complaints. No overnight events - Objective MAR Reviewed: Yes Vital Signs & Weight: Vital Signs (12 hours) Temp Pulse Resp BP Pulse Ox 04/26/18 15:10 98.1 F 85 14 126/81 96 04/26/18 11:50 98.1 F 101 H 14 120/81 95 Weight Admit Weight 141 lb Weight 141 lb I&O: 04/25/18 04/26/18 04/27/18 06:59 06:59 06:59 Intake Total 4450 2550 850 Output Total 5800 3600 1725 Balance -6550 -8212 -113 Result Diagrams: 04/26/18 05:50 04/26/18 05:50 Phys Exam - Physical Examination Constitutional: NAD Respiratory: no wheezing, no rhonchi Cardiovascular: RRR, no rub Gastrointestinal: soft, non-tender, positive bowel sounds Dx/Plan - Plan DVT proph w/SCDs 1. Chronic hyponatremia 2. Macrocytic anemia 3. Thrombocytopenia - improving 4. Polycythemia - resolved. - prob due to hemoconcentration PLAN: BMP and serum osm in AM Start Vit B12 and folic acid supp Cont other meds as below Will follow PRN Review of Systems - Review of Systems Respiratory: negative: Cough, Dry, Shortness of Breath, Hemoptysis, SOB with Excertion, Pleuritic Pain, Sputum, Wheezing Cardiovascular: negative: chest pain, palpitations, orthopnea, paroxysmal nocturnal dyspnea, edema, light headedness, other - Medications/Allergies Allergies/Adverse Reactions: Allergies Allergy/AdvReac Type Severity Reaction Status Date / Time Sulfa (Sulfonamide Allergy Hives Verified 04/21/18 11:47 Antibiotics) Medications: Current Medications Acetaminophen (Tylenol) 650 mg PO Q4H PRN PRN Reason: Headache/Fever or Pain Acetaminophen (Tylenol) 650 mg [place] Q4H PRN PRN Reason: Headache/Fever or Pain Acetaminophen/Codeine Phosphate (Tylenol #3) 1 tab PO Q3H PRN PRN Reason: Mild Pain (1-3) Acetaminophen/Codeine Phosphate (Tylenol #3) 2 tab PO Q3H PRN PRN Reason: Moderate Pain (4-6) Last Admin: 04/24/18 17:37 Dose: 2 tab Al Hydroxide/Mg Hydroxide (Maalox) 30 ml PO Q4H PRN PRN Reason: Indigestion Last Admin: 04/23/18 18:17 Dose: 30 ml Bisacodyl (Dulcolax) 10 mg [place] Q12H PRN PRN Reason: Constipation Diphenhydramine HCl (Benadryl) 25 mg IVP Q6H PRN PRN Reason: Itching Diphenhydramine HCl (Benadryl) 25 mg PO Q6H PRN PRN Reason: Itching Last Admin: 04/26/18 13:02 Dose: 25 mg Cefazolin Sodium/Dextrose 2 gm (/ Device) 50 mls @ 100 mls/hr IVPB Q8HR [facility] Last Admin: 04/26/18 21:20 Dose: 50 mls Sodium Chloride (Normal Saline 0.9%) 1,000 mls @ 75 mls/hr IV .[id number] [facility] Last Admin: 04/26/18 09:09 Dose: Not Given Magnesium Hydroxide (Milk Of Magnesium) 30 ml PO Q12H PRN PRN Reason: Constipation Last Admin: 04/23/18 18:17 Dose: 30 ml Morphine Sulfate (Morphine) 2 mg SLOW IVP Q1H PRN PRN Reason: Moderate Breakthrough Pain Morphine Sulfate (Morphine) 4 mg SLOW IVP Q1H PRN PRN Reason: Severe Breakthrough Pain Ondansetron HCl (Zofran) 4 mg IVP DAILYPRN PRN PRN Reason: Nausea Pantoprazole Sodium (Protonix) 40 mg PO DAILY [facility] Last Admin: 04/26/18 09:05 Dose: 40 mg Polyethylene Glycol (Miralax) 17 gm PO DAILYPRN PRN PRN Reason: Constipation Promethazine HCl (Phenergan) 12.5 mg PO Q4H PRN PRN Reason: Nausea/Vomiting Last Admin: 04/26/18 21:56 Dose: 12.5 mg Promethazine HCl (Phenergan) 12.5 mg IM Q4H PRN PRN Reason: Nausea/Vomiting Senna/Docusate Sodium (Senokot S) 1 tab PO BID [facility] Last Admin: 04/26/18 21:19 Dose: 1 tab Sodium Chloride (Flush - Normal Saline) 10 ml IVF PRN PRN PRN Reason: Saline Flush Tamsulosin HCl (Flomax) 0.4 mg PO 0600 [facility] Last Admin: 04/26/18 05:20 Dose: 0.4 mg Tizanidine HCl (Zanaflex) 4 mg PO Q6H PRN PRN Reason: Muscle Spasm Last Admin: 04/26/18 21:56 Dose: 4 mg Tramadol HCl (Ultram) 50 mg PO Q6H PRN PRN Reason: Mild Pain (1-3) Tramadol HCl (Ultram) 100 mg PO Q6H PRN PRN Reason: Moderate Pain (4-6) Last Admin: 04/26/18 13:03 Dose: 100 mg
[2018-04-27] MEDS: Tamsulosin HCl 0.4 MG CAP PO SCH (05:06)
[2018-04-27] MEDS: CEFAZOLIN 2 GM in Premix Bag 1 BAG IVPB SCH ×3 (05:06→22:43)
[2018-04-27 07:26] LABS: Anion Gap 9 mmol/L (10-20); BUN (Urea Nitrogen) 5 mg/dL (8.4-25.7); Calc. Creatinine Clearance 102 mL/min (70-130); Calcium 8.9 mg/dL (7.8-10.44); Carbon Dioxide 30 mmol/L (23-31); Chloride 98 mmol/L (98-107); Estimated GFR-MDRD Greater than 90; Glucose 80 mg/dL (80-115); Potassium 4.2 mmol/L (3.5-5.1); Sodium 133 mmol/L (136-145)
[2018-04-27] MEDS: Senokot S 8.6-50 MG TAB PO SCH ×2 (08:51→21:59)
[2018-04-27] MEDS: Cyanocobalamin (Vitamin B-12) 1,000 MCG TAB PO SCH (08:51)
[2018-04-27] MEDS: diphenhydrAMINE 25 MG CAP PO PRN ×3 (08:51→22:43)
[2018-04-27] MEDS: Multivit, Therapeutic 1 TAB PO SCH (08:52)
[2018-04-27] MEDS: Folic Acid 1 MG TAB PO SCH (08:52)
[2018-04-27] MEDS: traMADol HCl 50 MG TAB PO PRN ×2 (11:04→18:53)
--- NOTE | 2018-04-27 11:57 | PRG ---
DATE OF SERVICE: 04/27/2018 SUBJECTIVE: Mr. Mccabe continues to recover from his posterior cervical laminectomy and fusion for myelopathy. He continues to demonstrate daily improvement in his neurologic function. Again feeling improvement in his hand function, but more noticeable is his improvement in leg weakness and gait. His wound is dry and I changed the dressing. We are continuing to work towards placement in inpatient rehab and awaiting a bed. Job ID: [id number]
[2018-04-27] MEDS: Sodium Chloride 0.9% 1,000 ML IV SCH (14:42)
[2018-04-27] MEDS: Acetaminophen/Codeine 30-300mg Tablet PO PRN (21:54)
[2018-04-27] MEDS: tiZANidine HCl 4 MG TAB PO PRN (21:55)
[2018-04-27] MEDS: Promethazine 25 MG TAB PO PRN (21:55)
[2018-04-28] MEDS: Sodium Chloride 0.9% 1,000 ML IV SCH ×2 (05:40→16:40)
[2018-04-28] MEDS: CEFAZOLIN 2 GM in Premix Bag 1 BAG IVPB SCH (05:46)
[2018-04-28] MEDS: Tamsulosin HCl 0.4 MG CAP PO SCH (05:47)
[2018-04-28] MEDS: Multivit, Therapeutic 1 TAB PO SCH (08:54)
[2018-04-28] MEDS: Senokot S 8.6-50 MG TAB PO SCH ×2 (08:54→20:31)
[2018-04-28] MEDS: Folic Acid 1 MG TAB PO SCH (08:54)
[2018-04-28] MEDS: Cyanocobalamin (Vitamin B-12) 1,000 MCG TAB PO SCH (08:54)
--- NOTE | 2018-04-28 09:50 | PRG ---
DATE OF SERVICE: 04/28/2018 I saw Mr. Miladis Mccabe in his hospital room this morning. He is beginning mobilization with physical therapy and says his legs are stronger than they were before surgery. They are now strong and stable as they were months and months ago, but immediately before surgery, he is barely ambulatory. Mr. Mccabe, in my view, is ready for transfer to inpatient rehabilitation. Aggressive physical and occupational therapy will be his best treatment to regain neurological function over time. Job ID: [id number] [facility]
[2018-04-28] MEDS: Cephalexin 250 MG CAP PO SCH ×3 (11:41→23:50)
[2018-04-28] MEDS: diphenhydrAMINE 25 MG CAP PO PRN ×2 (11:42→22:18)
[2018-04-28] MEDS: tiZANidine HCl 4 MG TAB PO PRN ×2 (14:39→22:18)
[2018-04-28] MEDS: traMADol HCl 50 MG TAB PO PRN ×2 (14:40→23:50)
[2018-04-28] MEDS: Promethazine 25 MG TAB PO PRN (22:17)
--- NOTE | 2018-04-28 23:03 | PDOC.PN ---
- Subjective Encounter Start Date: 04/28/18 Encounter Start Time: 11:00 Patient seen and examined for med mngt. No new complaints. No overnight events - Objective MAR Reviewed: Yes Vital Signs & Weight: Vital Signs (12 hours) Temp Pulse Resp BP Pulse Ox 04/28/18 20:31 97 04/28/18 20:21 98.9 F 96 16 132/91 H 97 04/28/18 15:26 97.8 F 88 18 132/86 95 04/28/18 11:15 97.7 F 74 18 119/81 92 L Weight Admit Weight 141 lb Weight 141 lb I&O: 04/27/18 04/28/18 04/29/18 06:59 06:59 06:59 Intake Total 1100 1840 1100 Output Total 4575 3850 1440 Balance -3475 -2010 -340 Result Diagrams: 04/26/18 05:50 04/27/18 05:58 Phys Exam - Physical Examination Constitutional: NAD Respiratory: no wheezing, no rhonchi Cardiovascular: RRR, no rub Gastrointestinal: soft, positive bowel sounds Dx/Plan - Plan DVT proph w/SCDs 1. Chronic hyponatremia 2. Macrocytic anemia 3. Thrombocytopenia - improved 4. Polycythemia - resolved. - prob due to hemoconcentration PLAN: Cont current meds as below Await placement Will follow PRN Review of Systems - Review of Systems Respiratory: negative: Cough, Dry, Shortness of Breath, Hemoptysis, SOB with Excertion, Pleuritic Pain, Sputum, Wheezing Cardiovascular: negative: chest pain, palpitations, orthopnea, paroxysmal nocturnal dyspnea, edema, light headedness, other - Medications/Allergies Allergies/Adverse Reactions: Allergies Allergy/AdvReac Type Severity Reaction Status Date / Time Sulfa (Sulfonamide Allergy Hives Verified 04/21/18 11:47 Antibiotics) Medications: Current Medications Acetaminophen (Tylenol) 650 mg PO Q4H PRN PRN Reason: Headache/Fever or Pain Acetaminophen (Tylenol) 650 mg [place] Q4H PRN PRN Reason: Headache/Fever or Pain Acetaminophen/Codeine Phosphate (Tylenol #3) 1 tab PO Q3H PRN PRN Reason: Mild Pain (1-3) Acetaminophen/Codeine Phosphate (Tylenol #3) 2 tab PO Q3H PRN PRN Reason: Moderate Pain (4-6) Last Admin: 03/03/19 21:54 Dose: 2 tab Al Hydroxide/Mg Hydroxide (Maalox) 30 ml PO Q4H PRN PRN Reason: Indigestion Last Admin: 04/23/18 18:17 Dose: 30 ml Bisacodyl (Dulcolax) 10 mg [place] Q12H PRN PRN Reason: Constipation Cephalexin (Keflex) 500 mg PO Q6HR [facility] Stop: 05/02/18 23:59 Last Admin: 04/28/18 18:34 Dose: 500 mg Cyanocobalamin (Vitamin B-12) 1,000 mcg PO DAILY [facility] Last Admin: 04/28/18 08:54 Dose: 1,000 mcg Diphenhydramine HCl (Benadryl) 25 mg IVP Q6H PRN PRN Reason: Itching Diphenhydramine HCl (Benadryl) 25 mg PO Q6H PRN PRN Reason: Itching Last Admin: 04/28/18 22:18 Dose: 25 mg Folic Acid (Folvite) 1 mg PO DAILY [facility] Last Admin: 04/28/18 08:54 Dose: 1 mg Sodium Chloride (Normal Saline 0.9%) 1,000 mls @ 75 mls/hr IV .[id number] [facility] Last Admin: 04/28/18 16:40 Dose: Not Given Magnesium Hydroxide (Milk Of Magnesium) 30 ml PO Q12H PRN PRN Reason: Constipation Last Admin: 04/23/18 18:17 Dose: 30 ml Morphine Sulfate (Morphine) 2 mg SLOW IVP Q1H PRN PRN Reason: Moderate Breakthrough Pain Morphine Sulfate (Morphine) 4 mg SLOW IVP Q1H PRN PRN Reason: Severe Breakthrough Pain Multivitamins (Theragran) 1 tab PO DAILY [facility] Last Admin: 04/28/18 08:54 Dose: 1 tab Ondansetron HCl (Zofran) 4 mg IVP DAILYPRN PRN PRN Reason: Nausea Pantoprazole Sodium (Protonix) 40 mg PO DAILY [facility] Last Admin: 04/28/18 08:54 Dose: 40 mg Polyethylene Glycol (Miralax) 17 gm PO DAILYPRN PRN PRN Reason: Constipation Promethazine HCl (Phenergan) 12.5 mg PO Q4H PRN PRN Reason: Nausea/Vomiting Last Admin: 04/28/18 22:17 Dose: 12.5 mg Promethazine HCl (Phenergan) 12.5 mg IM Q4H PRN PRN Reason: Nausea/Vomiting Senna/Docusate Sodium (Senokot S) 1 tab PO BID [facility] Last Admin: 04/28/18 20:31 Dose: 1 tab Sodium Chloride (Flush - Normal Saline) 10 ml IVF PRN PRN PRN Reason: Saline Flush Tamsulosin HCl (Flomax) 0.4 mg PO 0600 [facility] Last Admin: 04/28/18 05:47 Dose: 0.4 mg Tizanidine HCl (Zanaflex) 4 mg PO Q6H PRN PRN Reason: Muscle Spasm Last Admin: 04/28/18 22:18 Dose: 4 mg Tramadol HCl (Ultram) 50 mg PO Q6H PRN PRN Reason: Mild Pain (1-3) Tramadol HCl (Ultram) 100 mg PO Q6H PRN PRN Reason: Moderate Pain (4-6) Last Admin: 04/28/18 14:40 Dose: 100 mg
[2018-04-29 04:39] VITALS: BP 113/62; TEMP 97.9
[2018-04-29] MEDS: Sodium Chloride 0.9% 1,000 ML IV SCH (05:22)
[2018-04-29] MEDS: Tamsulosin HCl 0.4 MG CAP PO SCH (05:44)
[2018-04-29] MEDS: Cephalexin 250 MG CAP PO SCH ×2 (05:44→12:08)
--- NOTE | 2018-04-29 07:30 | PRG ---
DATE OF SERVICE: 04/29/2018 Miladis Mccabe is doing well in his hospital room this morning. He tells me that physical therapy did not visit him yesterday, which is somewhat upsetting given that that is the treatment he needs. His incision looks fine. There is scant drainage, I removed the dressing. He does not need a dressing. His skin is reacting a little bit with the yue as there is some redness right at the staple entry point. This does not look like infection, but rather reaction to the metal of the yue. Neurologically he has improved since his surgery. He needs inpatient rehabilitation and we are waiting for placement. Job ID: [id number] [facility]
[2018-04-29] MEDS: diphenhydrAMINE 25 MG CAP PO PRN (07:47)
[2018-04-29] MEDS: Folic Acid 1 MG TAB PO SCH (09:21)
[2018-04-29] MEDS: Cyanocobalamin (Vitamin B-12) 1,000 MCG TAB PO SCH (09:22)
[2018-04-29] MEDS: Multivit, Therapeutic 1 TAB PO SCH (09:22)
[2018-04-29] MEDS: Senokot S 8.6-50 MG TAB PO SCH (09:25)
[2018-04-29] MEDS: traMADol HCl 50 MG TAB PO PRN (12:09)
== END 2018-04-29 13:05 | DRG 472 ==
LOC: SURG A 05:57 → EDSTATUS 10:32 → SURG A 13:08
PROVIDERS: ADMIT Neurological Surgery; ATTEND Neurological Surgery
PROC: 01N10ZZ Release Cervical Nerve, Open Approach (ICD-10-PCS; principal; 2018-04-22)
PROC: 0RG2071 Fusion of 2 or more Cervical Vertebral Joints with Autologous Tissue Substitute, Posterior Approach, Posterior Column, Open Approach (ICD-10-PCS; 2018-04-22)
PROC: 01N80ZZ Release Thoracic Nerve, Open Approach (ICD-10-PCS; 2018-04-22)
PROC: 0RG4071 Fusion of Cervicothoracic Vertebral Joint with Autologous Tissue Substitute, Posterior Approach, Posterior Column, Open Approach (ICD-10-PCS; 2018-04-22)
DX: M48.02 Spinal stenosis, cervical region (principal); E87.1 Hypo-osmolality and hyponatremia; M47.12 Other spondylosis with myelopathy, cervical region; D53.9 Nutritional anemia, unspecified; D69.6 Thrombocytopenia, unspecified; D75.1 Secondary polycythemia; M19.90 Unspecified osteoarthritis, unspecified site; F32.9 Major depressive disorder, single episode, unspecified; Z91.81 History of falling; Z96.653 Presence of artificial knee joint, bilateral; F17.210 Nicotine dependence, cigarettes, uncomplicated
CPT/HCPCS: 36415; 76000; 80048; 83735; 83930; 85007; 85025; 85027; 85610; 85730; C1713; C1768; J0670; J1100; J2001; J2370; J2405; J2704; J3010; J3370; J3490; J7799; P9045; Q0163; Q0169

== ENCOUNTER 2018-08-05 16:16 | Outpatient (CLI) | payer MEDICARE ==
--- NOTE | 2018-08-05 16:57 | RAD ---
CERVICAL SPINE FOUR VIEWS: 08/05/18 HISTORY: Cervical spondylosis with myelopathy. Pain. COMPARISON: 03/21/18 FINDINGS: Lateral, neutral, lateral swimmer's, AP and open mouth views of the cervical spine is submitted for i nterpretation. Incomplete evaluation of the cervical spine. There is extensive posterior fusion hardw are at C2, C3, C4, C5, C6, and C7. No perihardware lucency. Multilevel degenerative change with loss of disc space height and osteophyte formation from C3-C4 through C6-C7. Vertebral body height is main tained. No fracture. 2.5 mm of anterolisthesis of C3 upon C4. Extensive laminectomy defects from C3 through C7. No malalignment of the AP projection. Suboptimal ev aluation of the odontoid process on the open mouth projection. Limited evaluation of the C6 and C7 disc space level. There does appear to be anterolisthesis of C6 u linda C7 which cannot be adequately assessed. IMPRESSION: 1. Posterior cervical fusion as described above. 2. Anterolisthesis of C6 upon C7 which cannot be adequately assessed. POS: OFF
== END 2018-08-05 16:17 | disposition home or self-care (01) ==
LOC: TBSIIMAG 16:16
PROVIDERS: ATTEND Neurological Surgery
DX: M47.12 Other spondylosis with myelopathy, cervical region (principal); M43.12 Spondylolisthesis, cervical region; Z98.1 Arthrodesis status
CPT/HCPCS: 72040

== ENCOUNTER 2018-10-16 05:37 | Inpatient (IN) | payer MEDICARE ==
--- NOTE | 2018-09-05 13:41 | HP ---
HISTORY OF PRESENT ILLNESS: Mr. Mccabe is now 2 to 3 months out from cervical C3 through T1 laminectomy and fusion for severe myelopathy. He has had significant improvement in his shoulder abduction and it seems that the patient have improved. He comes mostly concerned that he cannot walk more than 50 yards before his legs prevent him from going on, he bends forward or sits to relieve this pain and this is very limiting for him. REVIEW OF SYSTEMS: A 10-point review of systems has been completed and is negative other than stated in the above HPI. PAST MEDICAL HISTORY: 1. Chronic pain. 2. Arthritis. 3. Allergies. 4. Depression. ALLERGIES: SULFA. PAST SURGICAL HISTORY: 1. Bilateral knee replacements. 2. Total knee. 3. Right shoulder. FAMILY HISTORY: Father is , diagnosed with stroke. Mother is alive, diagnosed with cancer. Children . SOCIAL HISTORY: The patient is a smoker. He states that he uses alcohol. Denies drug. PHYSICAL EXAMINATION: CONSTITUTIONAL: The patient is alert and oriented. RESPIRATIONS: Normal work of breathing on room air. NEUROLOGIC: Motor exam; deltoids are now 4/5 bilateral, better. Hand intrinsics are improving as well. Sensory exam; area of hand numbness down the middle and right fingers on right hand, not entire hand. Lower extremities; 4-/5 on bilateral hip flexion, knee flexion, knee extension, dorsiflexion, plantar flexion, EHL. Pain with right hip rotation. Lumbar spine tenderness due to 3-beat clonus. No Babinski. IMAGING DATA: MRI of lumbar spine, stenosis severe at L1-L2, L2-L3, L3-L4, L4-L5 with foraminal disease as well. L5 is transitional and nearly attached to the sacrum on the right. Flexion-extension x-ray shows stability in all spine. ASSESSMENT AND PLAN: Cervical myelopathy, lumbar spinal stenosis with neurogenic claudication. Dr. Chan has offered laminectomy L1 through L5. The patient states that he understands the risks and is willing to proceed with surgery. Job ID: [id number]
--- NOTE | 2018-10-15 16:34 | HP ---
HISTORY OF PRESENT ILLNESS: Mr. Mccabe is 3 to 4 months out from cervical C3 through T1 laminectomy and fusion for severe myelopathy. He has had significant improvement in his shoulder abduction and it seems that the patient has had improved overall. He comes in mostly concerned that he cannot walk more than 2 yards before his legs prevent him from going any further. He states that he has to bend forward or sit down to relieve this pain and is very limiting for his daily living. REVIEW OF SYSTEMS: A 10-point review of systems has been completed and is negative other than stated in the above HPI. PAST MEDICAL HISTORY: Chronic pain, arthritis, allergies, depression. ALLERGIES: SULFA. PAST SURGICAL HISTORY: Bilateral knee replacement, total knee replacement, right shoulder surgery, and cervical laminectomy and fusion. FAMILY HISTORY: Father was , diagnosed with stroke. Mother is alive, diagnosed with cancer. SOCIAL HISTORY: The patient is a smoker. He states that he uses alcohol. Denies drug use. PHYSICAL EXAMINATION: CONSTITUTIONAL: The patient is alert and oriented. RESPIRATIONS: Normal work of breathing on room air. NEUROLOGIC: Motor exam, deltoids are now 4/5 bilateral. Hand intrinsics are improving. Sensory exam, area of numbness down to middle and right fingers on the right hand, not entire hand. Lower extremities, 4-/5 bilateral hip flexion, knee flexion, knee extension, dorsiflexion, plantar flexion, EHL. Pain with right hip rotation. Lumbar spinal tenderness. 2-3 beats clonus. No Babinski. IMAGING DATA: MRI lumbar spine stenosis, severe at L1-L2, L2-L3, L3-L4, and L4-L5 with foraminal disease as well. L5 is transitional and nearly attached to the sacrum on the right. Flexion-extension x-ray show stability in the spine. ASSESSMENT AND PLAN: Cervical myelopathy has improved following surgery and lumbar spinal stenosis with neurogenic claudication. Dr. Chan has offered surgery on laminectomy, L1 through 5. The patient states that he understands risks and is willing to proceed with surgery. Job ID: [id number]
[2018-10-16] MEDS ORDERED: Midazolam HCl 2 mg/2 ml Vial ONE (06:29)
[2018-10-16] MEDS ORDERED: Fentanyl 250 MCG/5 ML VIAL ONE (06:29)
[2018-10-16 06:35] LABS: #Basophils 0.1 thou/uL (0.0-0.2); #Eosinphils 0.2 thou/uL (0.0-0.7); #Lymphocytes 2.1 thou/uL (1.20-3.40); #Monocytes 0.7 thou/uL (0.11-0.59); #Neutrophils 3.7 thou/uL (1.40-6.50); %Basophils 1.3 % (0.0-1.0); %Eosinophils 2.6 % (0.0-10.0); %Lymphocytes 31.4 % (21.0-51.0); %Monocytes 10.7 % (0.0-10.0); Hemoglobin 15.8 g/dL (14.0-18.0); Mean Corpuscular HGB CONC 32.2 g/dL (32.0-36.0); Mean Corpuscular Hemoglobin 33.5 pg (27.0-31.0); Mean Platelet Volume 7.8 fL (7.4-10.4); Platelet Count 225 thou/uL (130-400); RBC Distribution Width 15.5 % (11.5-14.5); Red Blood Cell (RBC) Count 4.72 mill/uL (4.70-6.10); White Blood Cell (WBC) Count 6.8 thou/uL (4.8-10.8)
[2018-10-16 06:40] LABS: PTT 28.9 SEC (22.9-36.1); Prothrombin Time 13.4 SEC (12.0-14.7)
[2018-10-16] MEDS ORDERED: Sodium Chloride 0.9% 10 ML ONE (06:53)
[2018-10-16] MEDS ORDERED: Thrombin 5000 UNITS/5 ML VIAL ONE (06:53)
[2018-10-16] MEDS ORDERED: Bupivacaine HCl 0.5%/Epinephrine 1:200,000/PF 30 ml Vial ONE (06:53)
[2018-10-16] MEDS ORDERED: Acetaminophen/Codeine 30-300mg Tablet PO PRN (10:35)
[2018-10-16] MEDS ORDERED: Promethazine HCl 25 MG/ML VIAL IM PRN ×2 (10:35→10:47)
[2018-10-16] MEDS ORDERED: Acetaminophen 325 MG TAB PO PRN (10:35)
[2018-10-16] MEDS ORDERED: Promethazine 25 MG TAB PO PRN (10:35)
[2018-10-16] MEDS ORDERED: Morphine 4 MG/ML VIAL SLOW IVP PRN (10:35)
[2018-10-16] MEDS ORDERED: Bisacodyl 10 MG SUPP PR PRN (10:35)
[2018-10-16] MEDS ORDERED: Tamsulosin HCl 0.4 MG CAP PO PRN (10:35)
[2018-10-16] MEDS ORDERED: Morphine 2 MG/ML SYRINGE SLOW IVP PRN (10:35)
[2018-10-16] MEDS ORDERED: diphenhydrAMINE 50 MG/ML VIAL IVP PRN (10:35)
[2018-10-16] MEDS ORDERED: Ondansetron PF 4 MG/2 ML Vial IVP PRN (10:35)
[2018-10-16] MEDS ORDERED: Promethazine HCl 25 MG/ML VIAL SLOW IVP PRN (10:47)
[2018-10-16] MEDS ORDERED: HYDROmorphone 2 MG/ML VIAL SLOW IVP PRN (10:47)
[2018-10-16] MEDS ORDERED: Ondansetron HCl/PF 4 MG/2 ML Vial IVP PRN (10:47)
[2018-10-16] MEDS ORDERED: Fentanyl 100 MCG/2 ML VIAL ONE ×2 (11:06→11:25)
--- NOTE | 2018-10-16 11:09 | OP ---
DATE OF PROCEDURE: 10/16/2018 LINE SERVICE TECHNICIAN: Isidra Castaneda PA-C. PREOPERATIVE INDICATION: Treat pain and prevent neurological deterioration. PREOPERATIVE DIAGNOSIS: Multilevel lumbar stenosis with neurogenic claudication. POSTOPERATIVE DIAGNOSIS: Multilevel lumbar stenosis with neurogenic claudication. OPERATIVE PROCEDURES: Decompressive laminectomy, medial facetectomy, and foraminotomy, L1-L2, L2-L3, L3-L4, L4-L5. PREOPERATIVE MEDICATIONS: Ancef 2 g IV. DRAIN NUMBER: Zero. DRAIN TYPE: None. DESCRIPTION OF PROCEDURE: The patient was brought to the operating room. General endotracheal anesthesia was induced. The patient was positioned prone on the operating table with his chest and hips supported by gel-filled chest rolls. A lateral fluoro radiograph was used to plan our incision. The lumbar skin was sterilely prepped and draped. We opened our incision with a 10 blade knife and controlled bleeding with bipolar and monopolar cautery. We used monopolar cautery to dissect through subcutaneous tissues to the thoracodorsal fascia. We incised the fascia in the midline and reflected the paraspinal muscles off the spinous process and lamina of L1, L2, L3, L4, and L5. Self-retaining retractors were placed and a lateral fluoro radiograph confirmed the levels upon which we were operating. We then used an Adson rongeur to remove the spinous process and the inferior portion of L1 to the superior portion of L5. Kerrison rongeurs were used to fashion a laminectomy down the midline. We widened our laminectomy defect at each of our vertebral segments until we were in line with the medial aspect of the pedicles. We performed medial facetectomies to decompress each lateral recess. We performed foraminotomies over the exiting L1, L2, L3, L4, and L5 nerve roots on both sides. At the completion of our decompression, a Richter ball probe could pass through the lateral recess and out the foramen with each of the nerves. We irrigated copiously with bacitracin irrigation. We waxed the bone edges. We infused local anesthetic in the paraspinal muscles. We irrigated once again with bacitracin irrigation. We closed the wound in anatomical layers. This was a clean case, no contamination. Job ID: [id number]
[2018-10-16] MEDS: Sodium Chloride 0.9% 1,000 ML IV SCH (14:25)
[2018-10-16] MEDS: CEFAZOLIN 2 GM in Premix Bag 1 BAG IVPB SCH ×2 (14:25→22:57)
[2018-10-16] MEDS: Acetaminophen/Codeine 30-300mg Tablet PO PRN ×3 (14:26→21:42)
[2018-10-16] MEDS: Gabapentin 300 MG CAP PO SCH ×2 (14:26→21:42)
[2018-10-16] MEDS: Mag-Al 1200 mg/1200 mg/30 ML UDCUP PO PRN (14:32)
[2018-10-16] MEDS ORDERED: Ondansetron PF 4 MG/2 ML Vial ONE (15:20)
[2018-10-16] MEDS ORDERED: Dexamethasone 20 MG/5 ML VIAL ONE (15:20)
[2018-10-16] MEDS ORDERED: PROPOFOL 200 MG/20 ML VIAL ONE (15:20)
[2018-10-16] MEDS ORDERED: Rocuronium Bromide 10 MG/ML (10ML VIAL) ONE (15:20)
[2018-10-16] MEDS ORDERED: ePHEDrine 50 MG/ML VIAL ONE (15:20)
[2018-10-16] MEDS ORDERED: Glycopyrrolate 0.2 MG/ML 5 ML SYRINGE ONE ×2 (15:20)
[2018-10-16] MEDS ORDERED: Lidocaine 1% PF 5 ML VIAL ONE (15:20)
[2018-10-16] MEDS ORDERED: PHENYLEPHRINE-NS 100 MCG/ML 10 ML SYRINGE ONE (15:20)
[2018-10-16] MEDS ORDERED: Tamsulosin HCl 0.4 MG CAP PO SCH (17:00)
[2018-10-16] MEDS: Milk Of Magnesia 30 ML UDCUP PO PRN (18:06)
[2018-10-16] MEDS: Lisinopril 10 MG TAB PO SCH (22:56)
[2018-10-16] MEDS: Amlodipine 10 MG TAB PO SCH (22:56)
[2018-10-17] MEDS: diphenhydrAMINE 25 MG CAP PO PRN ×2 (01:16→20:58)
[2018-10-17] MEDS: Sodium Chloride 0.9% 1,000 ML IV SCH ×2 (06:52→14:36)
--- NOTE | 2018-10-17 07:59 | PRG ---
DATE OF SERVICE: 10/17/2018 I saw Mr. Mccabe. He is one day out from a lumbar laminectomy for multilevel stenosis and neurogenic claudication. Mr. Mccabe says that sensation in his legs and feet is improved markedly since yesterday. He got out of bed and walked to the bathroom, but he did not walk in the hallways yet. He is nervous about going home and being alone during his recovery. He is not sure he can safely make it out of bed into the hallway without assistance. He would like to go to rehab. On examination, he has good neurological function in the lower extremities. The urinary catheter is in. Our plan today is to remove the catheter and begin assistance with ambulation and have him evaluated by Physical Therapy. If he is a candidate for inpatient rehabilitation, he can be moved to that facility. Job ID: [id number]
[2018-10-17] MEDS: Tamsulosin HCl 0.4 MG CAP PO SCH (09:11)
[2018-10-17] MEDS: Gabapentin 300 MG CAP PO SCH ×3 (09:11→20:59)
[2018-10-17] MEDS: Acetaminophen/Codeine 30-300mg Tablet PO PRN ×2 (09:22→14:34)
[2018-10-17] MEDS: Milk Of Magnesia 30 ML UDCUP PO PRN (09:22)
[2018-10-17] MEDS: Mag-Al 1200 mg/1200 mg/30 ML UDCUP PO PRN (15:50)
[2018-10-17] MEDS: Amlodipine 10 MG TAB PO SCH (20:58)
[2018-10-17] MEDS: Lisinopril 10 MG TAB PO SCH (20:59)
[2018-10-18] MEDS: Acetaminophen/Codeine 30-300mg Tablet PO PRN ×4 (02:37→22:02)
[2018-10-18] MEDS: tiZANidine HCl 4 MG TAB PO PRN ×3 (02:37→22:02)
[2018-10-18] MEDS: Sodium Chloride 0.9% 1,000 ML IV SCH ×2 (06:21→17:05)
--- NOTE | 2018-10-18 08:09 | PRG ---
DATE OF SERVICE: 10/18/2018 Mr. Mccabe was seen in this hospital room this morning. He has some back pain overnight requiring a change of medication, but he is feeling better now. He reports that the sensation in both his hands and his feet have improved since surgery. I do not have a good explanation for the hands, but the decompression we did in the lumbar spine could be providing the benefit and that he is reporting. Vitals have been stable. Mr. Mccabe still needs assistance for ambulation and might benefit from inpatient rehabilitation. We are waiting for transfer arrangements to be made. He can leave as early as today. Job ID: [id number]
[2018-10-18] MEDS: Tamsulosin HCl 0.4 MG CAP PO SCH (09:16)
[2018-10-18] MEDS: Gabapentin 300 MG CAP PO SCH ×3 (09:16→20:27)
[2018-10-18] MEDS: Amlodipine 10 MG TAB PO SCH (20:27)
[2018-10-18] MEDS: Lisinopril 10 MG TAB PO SCH (20:27)
[2018-10-19] MEDS: Mag-Al 1200 mg/1200 mg/30 ML UDCUP PO PRN (01:15)
[2018-10-19] MEDS: Sodium Chloride 0.9% 1,000 ML IV SCH ×2 (06:34→19:38)
[2018-10-19] MEDS: Acetaminophen/Codeine 30-300mg Tablet PO PRN ×4 (09:28→22:36)
[2018-10-19] MEDS: Tamsulosin HCl 0.4 MG CAP PO SCH (09:28)
[2018-10-19] MEDS: Gabapentin 300 MG CAP PO SCH ×3 (09:28→20:15)
--- NOTE | 2018-10-19 09:56 | PRG ---
DATE OF SERVICE: 10/19/2018 Mr. Mccabe is 3 days out from lumbar laminectomy. He is ambulating in the hallways with some assistance. He is ready for inpatient rehabilitation. I think that is a reasonable idea. The incision looks good and the neurological function is improving. As soon as arrangements are made, he can transfer to rehab. Job ID: [id number]
[2018-10-19] MEDS: tiZANidine HCl 4 MG TAB PO PRN ×2 (14:57→22:36)
[2018-10-19] MEDS: Amlodipine 10 MG TAB PO SCH (20:14)
[2018-10-19] MEDS: Lisinopril 10 MG TAB PO SCH (20:15)
[2018-10-20] MEDS: Sodium Chloride 0.9% 1,000 ML IV SCH ×2 (07:31→21:32)
--- NOTE | 2018-10-20 07:46 | PRG ---
DATE OF SERVICE: 10/20/2018 I saw Miladis Mccabe in his hospital room this morning. He is quite comfortable in bed. Looking for inpatient rehabilitation. He can be discharged to an inpatient rehabilitation bed at anytime. Job ID: [id number]
[2018-10-20] MEDS: Gabapentin 300 MG CAP PO SCH ×3 (07:51→20:24)
[2018-10-20] MEDS: Tamsulosin HCl 0.4 MG CAP PO SCH (07:51)
[2018-10-20] MEDS: tiZANidine HCl 4 MG TAB PO PRN ×2 (07:51→22:17)
[2018-10-20] MEDS: Acetaminophen/Codeine 30-300mg Tablet PO PRN ×3 (14:13→22:19)
[2018-10-20] MEDS: Amlodipine 10 MG TAB PO SCH (20:24)
[2018-10-20] MEDS: Lisinopril 10 MG TAB PO SCH (20:24)
[2018-10-21] MEDS: Acetaminophen/Codeine 30-300mg Tablet PO PRN ×4 (03:32→21:52)
[2018-10-21] MEDS: Milk Of Magnesia 30 ML UDCUP PO PRN (06:34)
--- NOTE | 2018-10-21 08:09 | PRG ---
DATE OF SERVICE: 10/21/2018 I saw Miladis Mccabe in his hospital room this morning. He is resting comfortably. Participating in all therapy here in the hospital. His vital signs are stable. His back incision looks like it is healing quite well. I do not find any new neurological deficit. I recommend Mr. Mccabe go to inpatient rehabilitation as soon as he is approved for that. Job ID: [id number]
[2018-10-21] MEDS: Tamsulosin HCl 0.4 MG CAP PO SCH (08:34)
[2018-10-21] MEDS: Gabapentin 300 MG CAP PO SCH ×3 (08:34→20:18)
[2018-10-21] MEDS: Sodium Chloride 0.9% 1,000 ML IV SCH ×2 (09:49→20:22)
[2018-10-21] MEDS: tiZANidine HCl 4 MG TAB PO PRN ×2 (15:55→21:52)
[2018-10-21] MEDS: Amlodipine 10 MG TAB PO SCH (20:18)
[2018-10-21] MEDS: Lisinopril 10 MG TAB PO SCH (20:18)
[2018-10-21] MEDS: Mag-Al 1200 mg/1200 mg/30 ML UDCUP PO PRN (20:18)
[2018-10-22] MEDS: Acetaminophen/Codeine 30-300mg Tablet PO PRN ×4 (09:10→22:03)
[2018-10-22] MEDS: Gabapentin 300 MG CAP PO SCH ×3 (09:11→20:13)
[2018-10-22] MEDS: Tamsulosin HCl 0.4 MG CAP PO SCH (09:11)
[2018-10-22] MEDS: Sodium Chloride 0.9% 1,000 ML IV SCH (11:30)
--- NOTE | 2018-10-22 12:22 | PRG ---
DATE OF SERVICE: 10/22/2018 Mr. Mccabe is a 63-year-old male. He is 6 days out from lumbar laminectomy for lumbar stenosis. The patient has been doing well. He is walking with therapy every day. He is going further every day. He states that the sensation has significantly improved in his lower extremities and is happy with his progress. Unfortunately, patient wanted to go to rehab. Rehab was denied yesterday. Case management is working to try for group home, but if this is unable to happen, the patient states that he may be willing to go home once transportation has been arranged for him, he has a ride or the nursing facility will accept him. He can be discharged at any time. Job ID: [id number]
[2018-10-22] MEDS: tiZANidine HCl 4 MG TAB PO PRN ×2 (15:11→22:03)
[2018-10-22] MEDS: Amlodipine 10 MG TAB PO SCH (20:13)
[2018-10-22] MEDS: Lisinopril 10 MG TAB PO SCH (20:13)
[2018-10-22] MEDS: Mag-Al 1200 mg/1200 mg/30 ML UDCUP PO PRN (20:13)
[2018-10-23] MEDS: Sodium Chloride 0.9% 1,000 ML IV SCH ×2 (04:13→08:59)
[2018-10-23] MEDS: Milk Of Magnesia 30 ML UDCUP PO PRN (06:46)
--- NOTE | 2018-10-23 07:28 | PRG ---
DATE OF SERVICE: 10/23/2018 Mr. Mccabe is 7 days out from a posterior lumbar laminectomy. He is doing quite well. He has been discharged from Physical Therapy due to his increased mobility. The patient lives alone and has been able to arrange for a ride tomorrow morning. There have been no fevers reported overnight. No other events. The patient is progressing quite well. Tomorrow when his ride is able to get him, he will be discharged home and we will have medications sent in and a postop appointment scheduled. Job ID: [id number]
[2018-10-23] MEDS: Tamsulosin HCl 0.4 MG CAP PO SCH (08:58)
[2018-10-23] MEDS: Gabapentin 300 MG CAP PO SCH ×3 (08:58→20:22)
[2018-10-23] MEDS: Acetaminophen/Codeine 30-300mg Tablet PO PRN ×3 (15:29→22:08)
[2018-10-23] MEDS: Amlodipine 10 MG TAB PO SCH (20:23)
[2018-10-23] MEDS: Lisinopril 10 MG TAB PO SCH (20:25)
[2018-10-23] MEDS: tiZANidine HCl 4 MG TAB PO PRN (22:06)
[2018-10-24] MEDS: Sodium Chloride 0.9% 1,000 ML IV SCH (05:01)
[2018-10-24] MEDS: Tamsulosin HCl 0.4 MG CAP PO SCH (07:32)
[2018-10-24] MEDS: Gabapentin 300 MG CAP PO SCH (07:33)
[2018-10-24] MEDS: Acetaminophen/Codeine 30-300mg Tablet PO PRN ×2 (07:33→12:52)
[2018-10-24 08:00] VITALS: BP 120/69; TEMP 97.7
--- NOTE | 2018-10-24 15:48 | PRG ---
DATE OF SERVICE: Mr. Mccabe is a 63-year-old male, who is 8 days out of lumbar laminectomy. The patient has progressed well over the last several days. He is walking much further daily and has increased sensation in his lower extremities. There were no fevers reported last night. No events recorded. There is significant improvement in strength and sensation in lower extremities prior to surgery. Plan for Mr. Mccabe is to go home today. He had arranged a ride late morning or early this afternoon. Followup has been arranged with our office and scripts have been sent in. The patient can be discharged when ready. Job ID: [id number]
== END 2018-10-24 13:20 | disposition home or self-care (01) | DRG 517 ==
LOC: SDC 05:37 → SURG A 11:24
PROVIDERS: ADMIT Neurological Surgery; ATTEND Neurological Surgery
PROC: 01NB0ZZ Release Lumbar Nerve, Open Approach (ICD-10-PCS; principal; 2018-10-16)
DX: M48.062 Spinal stenosis, lumbar region with neurogenic claudication (principal); G89.29 Other chronic pain; M19.91 Primary osteoarthritis, unspecified site; F32.9 Major depressive disorder, single episode, unspecified; Z96.653 Presence of artificial knee joint, bilateral; F17.200 Nicotine dependence, unspecified, uncomplicated; Z88.2 Allergy status to sulfonamides
CPT/HCPCS: 36415; 76000; 85025; 85610; 85730; J0670; J0690; J1100; J2001; J2250; J2270; J2405; J2704; J3010; J3370; J3490; Q0163